=== PATIENT | female | born 1995 | race Caucasian/White ===

== ENCOUNTER 2018-01-16 19:06 | Emergency (ER) | payer MEDICAID, SELFPAY ==
[2018-01-16 19:07] VITALS: BP 157/108; PULSE 90; RESP 17; TEMP 35.9; O2SAT 96; BMI 55.3
[2018-01-16 19:21] LABS: Bedside Glucose 109 mg/dL (70-110)
--- NOTE | 2018-01-16 19:27 | EKG12_ITS ---
Test Reason : BLURRED/DOUBLE VISIO Blood Pressure : / mmHG Vent. Rate : 083 BPM Atrial Rate : 083 BPM P-R Int : 120 ms QRS Dur : 096 ms QT Int : 356 ms P-R-T Axes : 002 012 028 degrees QTc Int : 418 ms Normal sinus rhythm Normal ECG Confirmed by MANNY DA SILVA, AMBERLY ([id number]), editorial director RUBIO MURRAY ([id number] on 01/19/2018 8:48:57 AM Referred By: NELIA Confirmed By:AMBERLY BRYANT MD
--- NOTE | 2018-01-16 19:32 | NURSING ---
NO OLD EKG'S IN MUSE
--- NOTE | 2018-01-16 19:35 | CT_ITS ---
STUDY: CTA NECK WITH CONTRAST REASON FOR EXAM: Female, 22 years old. BLURRED AND DOUBLE VISION,DIZZINESS X 4 HRS RADIATION DOSAGE (If Supplied By Facility): CTDIvol = ( 30.49 ) mGy, DLP = ( 1520.52 ) mGycm TECHNIQUE: CT angiography with multi-detector data acquisition was performed from the aortic arch to the skull base following intravenous administration of 100ML ml of Isovue 370 contrast. MIP images were reconstructed from the axial data set. Post-processing of the angiographic images was performed, with multiplanar reformation and 3D reconstruction. Individualized dose optimization techniques were used for this CT. COMPARISON: None. FINDINGS: AORTIC ARCH: There is a bovine origin of the great vessels arising from the aortic arch with a common origin of the brachiocephalic and left common carotid artery. RIGHT CAROTID ARTERIES: Normal right common carotid artery (CCA). Normal right common carotid bulb. Normal origin of the right internal carotid (ICA) artery without a hemodynamically significant stenosis. Normal visualized cervical portion of the right internal carotid artery. Normal origin of the right external carotid artery (ECA). LEFT CAROTID ARTERIES: Normal left common carotid artery (CCA). Normal left common carotid bulb. Normal origin of the left internal carotid (ICA) artery without a hemodynamically significant stenosis. Normal visualized cervical portion of the left internal carotid artery. Normal origin of the left external carotid artery (ECA). VERTEBRAL ARTERIES: Normal bilateral vertebral arteries. CT/CTA Neck W/WO Contrast IMPRESSION: Normal bilateral cervical carotid and vertebral arteries. The degree of stenosis calculation is in accordance with NASCET criteria. Electronically Signed: Galina Wolf MD at 23:20 EDT Tel , Service support ,
--- NOTE | 2018-01-16 19:35 | CT_ITS ---
STUDY: CTA OF THE BRAIN REASON FOR EXAM: Female, 22 years old. BLURRED AND DOUBLE VISION,DIZZINESS X 4 HRS RADIATION DOSAGE (If Supplied By Facility): CTDIvol = ( 30.49 ) mGy, DLP = ( 1520.52 ) mGycm TECHNIQUE: CT angiography was performed with a multi-detector CT scanner. Data acquisition was obtained from the skull base through the vertex following intravenous administration of ml of . MIP images were reconstructed from the axial data set. Post-processing of the angiographic images was performed, with multiplanar reformation and 3D reconstruction. Individualized dose optimization techniques were used for this CT. COMPARISON: None. FINDINGS: Normal bilateral petrous carotid arteries. Normal right cavernous carotid artery with a normal supraclinoid bifurcation. Normal left cavernous carotid artery with a normal supraclinoid bifurcation. Normal right A1 segments of the anterior cerebral artery. Normal left A1 segments of the anterior cerebral artery. Normal intact anterior communicating artery (ACOM). Normal bilateral A2 segments of the anterior cerebral arteries. Normal right M1 and M2 segments of the middle cerebral arteries, with a normal M1 bifurcation. Normal left M1 and M2 segments of the middle cerebral arteries, with a normal M1 bifurcation. There is non-visualization of the right posterior communicating artery (PCOM). Normal left posterior communicating artery (PCOM). Normal bilateral vertebral arteries. Normal basilar artery with a normal basilar bifurcation. The visualized bilateral superior cerebellar (SCA) arteries are normal. Normal bilateral P1, P2 and visualized P3 segments of the posterior cerebral arteries. There is no demonstrated aneurysm of the [place]. There is no demonstrated abnormality of the visualized brain. CT/CTA Head W/WO Contrast IMPRESSION: Normal [place] without a demonstrated aneurysm or hemodynamically significant stenosis. Electronically Signed: Galina Wolf MD at 23:18 EDT Tel , Service support ,
--- NOTE | 2018-01-16 19:43 | ED.DCSUM_ITS ---
- ER Visit Summary Date of Service: 01/16/18 Chief Complaint: Dizziness, blurry vision, double vision History of Present Illness: The patient is a 22 F presenting with dizziness, blurry vision, double vision. She states it started 2-1/2 hours ago. She states when she closes one eye she can see normally out of each eye. When both eyes are open she has double vision. She complains of lightheadedness and vertigo type symptoms. She has mild headache. She complains of generalized weakness. Denies fever or other complaints. Physical Examination: Vitals are stable. Patient is afebrile. Alert no acute distress. HEENT exam is unremarkable. Neck is supple. No meningismus Lungs are clear and equal bilaterally. Heart is regular rate and rhythm. Abdomen is soft nontender nondistended. Extremities are unremarkable. Skin is warm and dry. No focal neurologic deficit. NIH 0. Remainder of exam is unremarkable. Emergency Department Course and Treatment: EKG is sinus rate of 83 with no acute ischemic changes. CBC, chemistries unremarkable. Urinalysis is contaminated with 10-25 epithelial cells. hCG negative. ESR 29, TSH 2.21. Tox positive for THC. Alcohol negative. Patient states that she frequently uses marijuana and does not feel this is the cause of her symptoms. She is given IV fluids, meclizine with improvement. Her double vision has resolved. CTA head and neck are unremarkable. On reevaluation patient's symptoms have completely resolved. Discussed with Dr. Harrell. He recommends close outpatient follow up for MRI vs admission. The patient is offered admission. She prefers to go home and follow-up as an outpatient. She is advised to return to the ED for any worsening complaints. Disposition: Discharge home Impression: Diplopia, dizziness- resolved This note was generated with [employer] dictation software. It may contain incorrect words, spelling, and punctuation that were not noted in review of the chart prior to signing ED Disposition - Plan for ED Patient: Chief Complaint: Neuro S/Sx Referrals: NOT,DEFINED [NON-STAFF] -
[2018-01-16] MEDS: 0.9% Normal Saline 1,000 ML 1000 ML IV (19:49)
[2018-01-16] MEDS: Meclizine 12.5 MG Tablet 25 MG PO (19:49)
[2018-01-16 19:55] LABS: Red Blood Cells-Urine 0 SEEN /hpf (0-5)
[2018-01-16 19:57] LABS: Absolute Lymphocyte Count 3.61 X10^3/ul (0.83-4.51); Absolute Neutrophil Count 6.2 X10^3/uL (2.0-7.7); Basophil# 0.03 X10^3/uL; Basophil% 0.3 % (0-1); Eosinophil# 0.16 X10^3/uL; Eosinophils% 1.5 % (0-5); Hematocrit 41.3 % (37-47); Hemoglobin 13.9 g/dl (12.0-15.0); Lymphocyte # 3.61 X10^3/ul (4.0); Lymphocyte % 33.9 % (19-41); Mean Corp Hgb Conc 33.7 g/gl (32-36); Mean Corpuscular Hgb 30.5 pg (27.0-32.0); Mean Corpuscular Volume 90.6 fL (81-99); Mean Platelet Vol. 10.6 fl (6.2-12.0); Monocyte# 0.62 X10^3/uL; Monocyte% 5.8 % (0-10); Neutrophil # 6.23 X10^3/uL (2.7-7.7); Neutrophil % 58.4 % (47-70); Platelet Count 269 K/mm3 (150-450); RBC Distribution Width CV 13.3 % (11.6-14.6); RBC Distribution Width SD 43.2 fl (35.1-43.9); Red Blood Count 4.56 M/mm3 (4.2-5.4); White Blood Count 10.7 K/mm3 (4.4-11.0)
[2018-01-16 19:58] LABS: POSITIVE COUNT NO; POSITIVE DIFFERENTIAL NO; POSITIVE MORPHOLOGY NO
[2018-01-16 20:08] LABS: Erythrocyte Sedimentation Rate 29 mm/hr (0-20)
[2018-01-16 20:09] LABS: Color, Urine Yellow (Yellow); Glucose, Dipstick Normal (Normal); Ketone-Dipstick Negative (Negative); Leukocyte Esterase-Dipstick 500 /ul (Negative); Nitrite-Dipstick Negative (Negative); Occult Blood-Urine 10 /ul (Negative); Protein-Dipstick 15 mg/dl (Negative); Specific Gravity, Urine 1.025 (1.002-1.030); Urine Clarity Cloudy (Clear); Urine Urobilinogen 1 mg/dl (Normal)
[2018-01-16 20:14] LABS: Anion Gap 9 (5-15); BUN 8 mg/dL (7-18); BUN/Creat Ratio 10.7 RATIO (10-20); Chloride 108 mmol/L (98-107); Creatinine, Serum 0.75 mg/dL (0.55-1.02); EST Glomerular Filtration Rate 103 mL/min (>60); Est Glom Filt Rate - Afr Amer 124 mL/min (>60); Estimated Creatinine Clearance 122.96 ml/min; Glucose 96 mg/dL (74-106); Potassium 3.5 mmol/L (3.5-5.1); Sodium Level 142 mmol/L (136-145); Thyroid Stim Hormone (TSH) 2.21 uIU/mL (0.358-3.74)
[2018-01-16 20:15] LABS: Urine Bilirubin Dipstick 1 mg/dL (Negative)
[2018-01-16 20:16] LABS: Mucous, Urine 4+ /hpf (<or=2+)
[2018-01-16 20:19] LABS: Bacteria 2+ /hpf (None Seen); White Blood Cells 5-10 SEEN /hpf (0-5)
[2018-01-16 20:24] LABS: Squamous Epithelial Cells - UA 10-25 SEEN /hpf (5-10)
[2018-01-16 20:29] LABS: Fine Granular Cast- Urine 0-5 SEEN /lpf (0-5)
[2018-01-16 20:51] LABS: Amphetamine Urine VISTA NEGATIVE (<1000 ng/mL); Barbiturate Urine VISTA NEGATIVE (< 200 ng/mL); Benzodiazepine Urine VISTA NEGATIVE (< 200 ng/mL); Cocaine Urine VISTA NEGATIVE (< 300 ng/mL); Ecstacy Urine VISTA NEGATIVE (< 500 ng/mL); Methadone Urine VISTA NEGATIVE (< 300 ng/mL); PCP Urine VISTA NEGATIVE (< 25 ng/mL); THC Urine VISTA POSITIVE (< 50 ng/mL); Vista UDS pH Range 5
[2018-01-16 21:43] LABS: Pregnancy, Serum, hCG Quali. NEGATIVE Negative (0-9 Nonpreg)
--- NOTE | 2018-01-16 23:40 | ED.DEP ---
ED Disposition - Plan for ED Patient: Chief Complaint: Neuro S/Sx Instructions: ED Double Vision Prescriptions: Meclizine HCl 25 mg PO TID PRN PRN #20 tablet PRN Reason: Dizziness Referrals: NOT,DEFINED [NON-STAFF] - Bertin Harrell MD [STAFF PHYSICIAN] - Evelyn Hayden DO [STAFF PHYSICIAN] -
[2018-01-16 23:58] VITALS: BP 154/87; PULSE 93; RESP 20; O2SAT 100
== END 2018-01-16 23:59 | disposition home or self-care (01) ==
PROVIDERS: Emergency Provider Emergency Medicine
DX: H53.2 Diplopia (principal); R42 Dizziness and giddiness
CPT/HCPCS: 70496; 70498; 80048; 80307; 80320; 81001; 82962; 84443; 84703; 85025; 85652; 93005; 96360; 96361; 99285; J7030; Q9967; A4216; G0480

== ENCOUNTER 2018-08-16 16:51 | Emergency (ER) | payer MEDICAID, SELFPAY ==
[2018-08-16 16:53] VITALS: BP 167/93; PULSE 87; RESP 18; TEMP 36.6; O2SAT 100; BMI 51.1
--- NOTE | 2018-08-16 17:19 | US_ITS ---
STUDY: VENOUS DOPPLER ULTRASOUND - LEFT LOWER EXTREMITY REASON FOR EXAM: Female, 23 years old. Pain and swelling TECHNIQUE: Ultrasound evaluation of the deep vein system to include ryan-scale imaging and compression was performed. Ryan-scale imaging and Doppler sonographic evaluation, including duplex spectral analysis and qualitative color flow sonography, was performed. COMPARISON: None. FINDINGS: Common Femoral Vein: Normal compression, spontaneity and augmentation. Normal color Doppler. Common Femoral Vein/Greater Saphenous Junction: Normal compression, spontaneity and augmentation. Normal color Doppler. Deep Femoral Vein: Normal compression, spontaneity and augmentation. Normal color Doppler. Femoral Proximal: Normal compression, spontaneity and augmentation. Normal color Doppler. Femoral Middle: Normal compression, spontaneity and augmentation. Normal color Doppler. Femoral Distal: Normal compression, spontaneity and augmentation. Normal color Doppler. Popliteal Vein: Normal compression, spontaneity and augmentation. Normal color Doppler. Posterior Tibial Vein: Normal compression, spontaneity and augmentation. Normal color Doppler. Peroneal Vein: Normal compression, spontaneity and augmentation. Normal color Doppler. US/Venous Duplex Imag/Limited/Uni IMPRESSION: Normal venous Doppler ultrasound of the lower extremity. Electronically Signed: Issac Casiano MD at 17:53 EST , Service support ,
[2018-08-16] MEDS: Naproxen 500 MG Tablet PO (17:51)
--- NOTE | 2018-08-16 18:23 | ED.DCSUM_ITS ---
- ER Visit Summary Date of Service: 08/16/18 Chief Complaint: Left leg pain History of Present Illness: The patient is a 23 F with left leg pain for the past 1 month. She states she woke one morning with pain and tingling. This started shortly after she started taking oral contraceptive pills is concerned for DVT. Apparently patient's sister developed DVT after starting oral contraceptive pills. Patient denies chest pain. She states she will intermittently have shortness of breath. Physical Examination: Blood pressure is 167/93, other vitals normal. Patient sitting upright in bed no acute distress. Head neck examination is normal. Heart is regular rate and rhythm. Lung sounds are clear. Abdomen is soft, obese, nontender. Back examination was reproducible tenderness in the low lumbar midline region as well as in the paraspinals. No overlying skin changes. Lower extremity examination was mild muscular tenderness of the proximal posterior calf and diffusely throughout the thigh. No skin changes noted. She has strong distal pulses. Test Results: Venous ultrasound of the left leg shows no sign of DVT. Emergency Department Course and Treatment: Patient is given naproxen here. She began a prescription for the same. She will be referred to establish a primary care physician for follow-up. Treatment Plan: [] Disposition: Discharge Impression: Myalgias, left leg This note was generated with [employer] dictation software. It may contain incorrect words, spelling, and punctuation that were not noted in review of the chart prior to signing ED Disposition - Plan for ED Patient: Chief Complaint: Lower Extremity Injury Referrals: Care Physician,No Primary [Primary Care Provider] -
--- NOTE | 2018-08-16 18:23 | ED.DEP ---
ED Disposition - Plan for ED Patient: Disposition: Home or Assisted Living Chief Complaint: Lower Extremity Injury Instructions: ED Muscle Aching Prescriptions: Naproxen [Naprosyn] 500 mg PO BID PRN PRN #20 tablet PRN Reason: Pain Referrals: Reggie Almeida MD [STAFF PHYSICIAN] -
[2018-08-16 18:25] VITALS: BP 148/93; PULSE 87; RESP 18; O2SAT 98
== END 2018-08-16 18:34 | disposition home or self-care (01) ==
PROVIDERS: Emergency Provider Emergency Medicine
DX: M79.18 Myalgia, other site (principal); R06.02 Shortness of breath; M54.9 Dorsalgia, unspecified; G89.29 Other chronic pain
CPT/HCPCS: 93971; 99282

== ENCOUNTER 2018-12-28 09:54 | Observation (INO) | payer MEDICAID, SELFPAY ==
[2018-12-28] VITALS (14 sets, daily range): BP systolic 114–168; BP diastolic 76–87; PULSE 63–88; RESP 13–21; TEMP 36.3–36.7; O2SAT 93–100; BMI 54.1
--- NOTE | 2018-12-28 09:58 | EKG12_ITS ---
Test Reason : CP Blood Pressure : / mmHG Vent. Rate : 090 BPM Atrial Rate : 090 BPM P-R Int : 122 ms QRS Dur : 092 ms QT Int : 350 ms P-R-T Axes : 005 014 019 degrees QTc Int : 428 ms Normal sinus rhythm Normal ECG Confirmed by MANNY DA SILVA, AMBERLY ([id number]), web editor SANNA SEGOVIA ([id number]) on 12/29/2018 8:20:50 AM Referred By: JO Confirmed By:AMBERLY BRYANT MD
--- NOTE | 2018-12-28 10:05 | US_ITS ---
STUDY: ABDOMINAL ULTRASOUND - RIGHT UPPER QUADRANT REASON FOR VISIT: Female, 23 years old. Right upper quadrant pain TECHNIQUE: Ultrasound evaluation of the right upper quadrant was performed with real-time and static juan-scale imaging. TECHNICAL QUALITY: Adequate. COMPARISON: None. FINDINGS: Liver: The liver measures 19 cm. There is normal echogenicity of the liver. The bile ducts are within normal limits. There is hepatic color flow. The direction of portal flow is hepatopetal. There is no demonstrated mass lesion. Gallbladder: Normal distended gallbladder. The gallbladder wall measures 4.6 mm. There is a negative sonographic Guzman's sign. There is no pericholecystic fluid. There are multiple echogenic structures within the gallbladder, consistent with multiple gallstones. Common Bile Duct (C.B.D.): The common bile duct measures 4.7 mm. Pancreas: Normal size of the head, body and tail of the pancreas. There is normal echogenicity of the pancreas. There is no demonstrated pancreatic mass or cyst. Right Kidney: Normal size of the right kidney. The right kidney measures 12.6 x 6 x 5.6 cm. Normal renal cortex. The right cortex measures 1.5 cm. There is no demonstrated renal mass or cyst. There is no right hydronephrosis. US/Gallbladder IMPRESSION: Cholelithiasis and possible acute cholecystitis. Electronically Signed: Galina Wolf, at 12:06 EDT Tel , Service support ,
--- NOTE | 2018-12-28 10:09 | ED.DCSUM_ITS ---
History of Present Illness Chief Complaint: Chest Pain Informant: Patient Onset: Today - around 5 hrs Context: Sudden Onset Timing: Waxes and wanes Quality: ache/sharp Location: lower chest vs. upper abd Current Severity: Moderate Maximum Severity: Moderate Worsened by: deep inspiration gives mild sharp pains Relieved by: nothing Associated Symptoms: nausea, a little sob. prod cough x 4 weeks. no fevers. Narrative: Patient feels like she has had a cold that has lingered for a month, that is not worsening or improving but she has had no dyspnea with it until this discomfort started this morning. Associated with some nausea, colicky, radiates into her back and she has some burning discomfort in her right shoulder. No palpitations or lightheadedness. No diarrhea. She has not eaten or drank anything this morning yet. She woke up in the middle of the night/morning with this. Has no known medical problems, although she states she is overweight. The back discomfort comes and goes along with the anterior discomfort. Strong family history of coronary disease in family at young ages, her mom had a heart attack at age 27. She has had no leg pain or swelling lately, recent travel, immobilization, hospitalization, or surgery. No history of DVT or PE. Past Medical History - Allergies and Home Meds Allergies/Adverse Reactions: Allergies No Known Allergies Allergy (Verified 12/28/18 09:54) Primary Care Physician: Care Physician,No Primary [Primary Care Provider] - Past Medical History: None Surgical History: no surgical history Lives: With Family Smoking Status: Current every day smoker Review of Systems General: Denies: Chills, Fever, Sweats Eyes: Denies: Visual changes - bilaterally, Diplopia ENT: Denies: Rhinorrhea, Sore throat Cardiovascular: Reports: Chest pain. Denies: Palpitations Respiratory: Reports: Dyspnea, Cough, Sputum. Denies: Orthopnea, Paroxysmal nocturnal dyspnea Gastrointestinal: Reports: Abdominal pain, Nausea. Denies: Vomiting, Diarrhea Genitourinary: Denies: Dysuria, Hematuria, Frequency Musculoskeletal: Reports: Back pain. Denies: Swelling, Extremity Pain Skin: Denies: Rash, Wounds Neurological: Denies: Headache, Weakness, Numbness Physical Exam Vital Signs/Narrative: Vital Signs Temp Pulse Resp BP Pulse Ox 12/28/18 09:55 98.1 F 83 18 159/77 H 99 Inital Vital Signs reviewed: Yes General: Well nourished, Well developed, Obese, No Acute Distress Head: Normocephalic, Atraumatic Eyes: Perrl, EOMI ENT: Moist mucous membranes, No rhinorrhea Neck: Supple, Nontender Cardiovascular: Regular rate, Regular rhythm, No murmurs Respiratory: No distress, CTA bilaterally, Chest nontender Abdomen: Soft, Nondistended, Normal bowel sounds, Tender - upper abd epigast and RUQ. Negative for: Guarding, Rebound tenderness Back: Nontender, Normal Inspection Extremities: Nontender, No edema Skin: Normal color, No rash Neurological: Alert, Oriented x3, Cranial nerves II-XII grossly intact, Normal Strength, Normal Sensation Psychological: Normal affect, Normal Mood Diagnostic/Tx/Re-eval Impressions Gallbladder Ultrasound 12/28/18 10:05 IMPRESSION: Cholelithiasis and possible acute cholecystitis. Electronically Signed: Galina Wolf, at 12:06 EDT Tel , Service support , 12/28/18 10:05 Gallbladder [US] Stat Laboratory Results 12/28/18 12/28/18 12/28/18 10:05 10:05 12:00 WBC 9.0 RBC 4.43 Hgb 13.7 Hct 41.1 MCV 92.8 MCH 30.9 MCHC 33.3 RDW 12.9 RDW Differential 42.8 Plt Count 211 MPV 10.6 Immature Gran % (Auto) 0.100 Neut % (Auto) 57.8 Lymph % (Auto) 32.5 [place] % (Auto) 6.8 Eos % (Auto) 2.6 Baso % (Auto) 0.2 Absolute Neuts (auto) 5.2 Absolute Lymphs (auto) 2.91 Total Counted Not Reportable Sodium 140 Potassium 3.7 Chloride 109 H Carbon Dioxide 26.0 Anion Gap 5 BUN 10 Creatinine 0.74 Estim Creat Clear Calc 123.57 Est GFR (MDRD) Af Amer 124 Est GFR (MDRD) Non-Af 103 BUN/Creatinine Ratio 13.5 Glucose 104 Calcium 8.4 L Total Bilirubin 0.30 AST 12 L ALT 26 Alkaline Phosphatase 67 Total Protein 7.1 Albumin 3.3 Globulin 3.8 Albumin/Globulin Ratio 0.9 Lipase 123 Urine Color Yellow Urine Clarity Sl. Cloudy Urine pH 6.0 Ur Specific [place] 1.015 Urine Protein Negative Urine Glucose (UA) Normal Urine Ketones Negative Urine Occult Blood Negative Urine Nitrite Negative Urine Bilirubin Negative Urine Urobilinogen Normal Ur Leukocyte Esterase 25 H Urine RBC 0 SEEN Urine WBC 0 SEEN Ur Squamous Epith Cells 0-5 SEEN Urine Bacteria 1+ Urine Mucus 0 SEEN Urine Test 12/28/18 12:00 WBC RBC Hgb Hct MCV MCH MCHC RDW RDW Differential Plt Count MPV Immature Gran % (Auto) Neut % (Auto) Lymph % (Auto) [place] % (Auto) Eos % (Auto) Baso % (Auto) Absolute Neuts (auto) Absolute Lymphs (auto) Total Counted Sodium Potassium Chloride Carbon Dioxide Anion Gap BUN Creatinine Estim Creat Clear Calc Est GFR (MDRD) Af Amer Est GFR (MDRD) Non-Af BUN/Creatinine Ratio Glucose Calcium Total Bilirubin AST ALT Alkaline Phosphatase Total Protein Albumin Globulin Albumin/Globulin Ratio Lipase Urine Color Urine Clarity Urine pH Ur Specific [place] Urine Protein Urine Glucose (UA) Urine Ketones Urine Occult Blood Urine Nitrite Urine Bilirubin Urine Urobilinogen Ur Leukocyte Esterase Urine RBC Urine WBC Ur Squamous Epith Cells Urine Bacteria Urine Mucus Urine Test Negative - Rhythm Strip Rhythm Strip: Sinus Rhythm Rate: 90 Ectopy: None - EKG Initial EKG Interpretation: Sinus Rhythm, No Acute Injury Pattern - normal EKG Prior: Unchanged - Medical Decision Making Labs and liver enzymes with lipase are normal, her urinalysis is unremarkable and her is negative. Out of concern for possible gallstones she was sent for ultrasound, it does show gallstones but in addition shows findings consistent with acute cholecystitis. Clinically, this also became more evident with her stay here, as we had difficulty controlling her pain even with morphine. She is hemodynamically stable. Zosyn given and discussed with surgery Dr. leon, who will see and admit the patient. ED Disposition - Plan for ED Patient: Disposition: Acute Care [facility] Diagnosis: Acute calculous cholecystitis
[2018-12-28 10:17] LABS: Absolute Lymphocyte Count 2.91 X10^3/ul (0.83-4.51); Absolute Neutrophil Count 5.2 X10^3/uL (2.0-7.7); Basophil# 0.02 X10^3/uL; Basophil% 0.2 % (0-1); Eosinophil# 0.23 X10^3/uL; Eosinophils% 2.6 % (0-5); Hematocrit 41.1 % (37-47); Hemoglobin 13.7 g/dl (12.0-15.0); Lymphocyte # 2.91 X10^3/ul (4.0); Lymphocyte % 32.5 % (19-41); Mean Corp Hgb Conc 33.3 g/gl (32-36); Mean Corpuscular Hgb 30.9 pg (27.0-32.0); Mean Corpuscular Volume 92.8 fL (81-99); Mean Platelet Vol. 10.6 fl (6.2-12.0); Monocyte# 0.61 X10^3/uL; Monocyte% 6.8 % (0-10); Neutrophil # 5.18 X10^3/uL (2.7-7.7); Neutrophil % 57.8 % (47-70); POSITIVE COUNT NO; POSITIVE DIFFERENTIAL NO; POSITIVE MORPHOLOGY NO; Platelet Count 211 K/mm3 (150-450); RBC Distribution Width CV 12.9 % (11.6-14.6); RBC Distribution Width SD 42.8 fl (35.1-43.9); Red Blood Count 4.43 M/mm3 (4.2-5.4)
[2018-12-28] MEDS: Mag Hydrox/Al Hydrox/Simeth 30 ML UDC PO (10:17)
[2018-12-28] MEDS: Ondansetron ODT 4 MG Tablet 8 MG PO (10:17)
[2018-12-28 10:33] LABS: ALB/GLOB Ratio 0.9 RATIO (0.9-2.4); AST(SGOT) 12 U/L (15-37); Alanine Aminotransfer ALT/SGPT 26 U/L (13-56); Albumin, Serum 3.3 g/dL (3.2-5.0); Alkaline Phosphatase 67 U/L (45-117); Anion Gap 5 (5-15); BUN 10 mg/dL (7-18); BUN/Creat Ratio 13.5 RATIO (10-20); Calcium,Total 8.4 mg/dL (8.5-10.1); Chloride 109 mmol/L (98-107); Creatinine, Serum 0.74 mg/dL (0.55-1.02); EST Glomerular Filtration Rate 103 mL/min (>60); Est Glom Filt Rate - Afr Amer 124 mL/min (>60); Estimated Creatinine Clearance 123.57 ml/min; Globulin 3.8 g/dL (2.2-4.2); Glucose 104 mg/dL (74-106); Lipase 123 U/L (73-393); Potassium 3.7 mmol/L (3.5-5.1); Protein, Total 7.1 g/dL (6.4-8.2); Sodium Level 140 mmol/L (136-145)
[2018-12-28] MEDS: Ketorolac 30 MG/ML Syringe IV (11:47)
[2018-12-28] MEDS: Morphine 4 MG/ML Syringe IV ×3 (11:47→18:04)
[2018-12-28 12:09] LABS: Mucous, Urine 0 SEEN /hpf (<or=2+); Red Blood Cells-Urine 0 SEEN /hpf (0-5); White Blood Cells 0 SEEN /hpf (0-5)
[2018-12-28 12:21] LABS: Color, Urine Yellow (Yellow); Glucose, Dipstick Normal (Normal); Ketone-Dipstick Negative (Negative); Leukocyte Esterase-Dipstick 25 /ul (Negative); Nitrite-Dipstick Negative (Negative); Occult Blood-Urine Negative /ul (Negative); Protein-Dipstick Negative (Negative); Specific Gravity, Urine 1.015 (1.002-1.030); Urine Bilirubin Dipstick Negative (Negative); Urine Clarity Sl. Cloudy (Clear); Urine Urobilinogen Normal (Normal)
[2018-12-28 12:49] LABS: Bacteria 1+ /hpf (None Seen); Squamous Epithelial Cells - UA 0-5 SEEN /hpf (5-10)
[2018-12-28 13:12] LABS: Internal QC Validated? YES +Cl - CLEAR BKGD; Pregnancy, Urine Negative Negative
--- NOTE | 2018-12-28 14:02 | PCM.HP.STD ---
History of Present Illness Date of Admission: 12/28/18 The patient is a 23 year old F presents to ER due to epigastric to right upper quadrant pain trying this morning at 4 AM. Patient states she has had these episodes on and off for the past couple months. Last Thursday she also had an attack however it did improve but this morning at 4 AM she had 10 out of 10 pain along with nausea and vomiting and diarrhea. Patient currently states her pain is at 3/10. She denies reflux. White blood counts and liver functions are within normal range, ultrasound did show a thickened gallbladder wall at 4.6 mm and gallstones, no pericholecystic fluid, common bile duct was 4.7 mm. 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 Lives: With Family Smoking Status: Current every day smoker - *Family History Maternal History Items: No pertinent history Review of Systems Constitutional: Reports: Anorexia Cardiovascular: Denies: Chest Pain Respiratory: Denies: Shortness of Breath VTE Information - Inpt Only VTE Present on Admission: Yes VTE Mechan Device Prophylaxis: SCD's Patient Problems: Active and Suspected Problems Acute calculous cholecystitis (Acute) - Physical Exam General: Alert, Oriented x3, Cooperative, No apparent distress Lungs: Normal air movement Cardiovascular: Regular rate Abdomen: Soft, Non-Distended, Obese, Tender - Right upper quadrant, no peritoneal signs Vital Signs Temp Pulse Resp BP Pulse Ox 98.1 F 80 13 147/79 H 98 12/28/18 09:55 12/28/18 13:06 12/28/18 13:06 12/28/18 13:06 12/28/18 13:06 Oxygen Delivery Method Room Air Weight: 366 lb 10.06 oz Body Mass Index (BMI) 54.1 Finger Stick Blood Glucose 109 Laboratory Tests Past 24 Hrs 12/28/18 12/28/18 12/28/18 10:05 10:05 12:00 WBC 9.0 RBC 4.43 Hgb 13.7 Hct 41.1 MCV 92.8 MCH 30.9 MCHC 33.3 RDW 12.9 RDW Differential 42.8 Plt Count 211 MPV 10.6 Immature Gran % (Auto) 0.100 Neut % (Auto) 57.8 Lymph % (Auto) 32.5 [place] % (Auto) 6.8 Eos % (Auto) 2.6 Baso % (Auto) 0.2 Absolute Neuts (auto) 5.2 Absolute Lymphs (auto) 2.91 Total Counted Not Reportable Sodium 140 Potassium 3.7 Chloride 109 H Carbon Dioxide 26.0 Anion Gap 5 BUN 10 Creatinine 0.74 Estim Creat Clear Calc 123.57 Est GFR (MDRD) Af Amer 124 Est GFR (MDRD) Non-Af 103 BUN/Creatinine Ratio 13.5 Glucose 104 Calcium 8.4 L Total Bilirubin 0.30 AST 12 L ALT 26 Alkaline Phosphatase 67 Total Protein 7.1 Albumin 3.3 Globulin 3.8 Albumin/Globulin Ratio 0.9 Lipase 123 Urine Color Yellow Urine Clarity Sl. Cloudy Urine pH 6.0 Ur Specific [place] 1.015 Urine Protein Negative Urine Glucose (UA) Normal Urine Ketones Negative Urine Occult Blood Negative Urine Nitrite Negative Urine Bilirubin Negative Urine Urobilinogen Normal Ur Leukocyte Esterase 25 H Urine RBC 0 SEEN Urine WBC 0 SEEN Ur Squamous Epith Cells 0-5 SEEN Urine Bacteria 1+ Urine Mucus 0 SEEN Urine Test 12/28/18 12:00 WBC RBC Hgb Hct MCV MCH MCHC RDW RDW Differential Plt Count MPV Immature Gran % (Auto) Neut % (Auto) Lymph % (Auto) [place] % (Auto) Eos % (Auto) Baso % (Auto) Absolute Neuts (auto) Absolute Lymphs (auto) Total Counted Sodium Potassium Chloride Carbon Dioxide Anion Gap BUN Creatinine Estim Creat Clear Calc Est GFR (MDRD) Af Amer Est GFR (MDRD) Non-Af BUN/Creatinine Ratio Glucose Calcium Total Bilirubin AST ALT Alkaline Phosphatase Total Protein Albumin Globulin Albumin/Globulin Ratio Lipase Urine Color Urine Clarity Urine pH Ur Specific [place] Urine Protein Urine Glucose (UA) Urine Ketones Urine Occult Blood Urine Nitrite Urine Bilirubin Urine Urobilinogen Ur Leukocyte Esterase Urine RBC Urine WBC Ur Squamous Epith Cells Urine Bacteria Urine Mucus Urine Test Negative Assessment/Plan All Active Problems Acute calculous cholecystitis (Acute) 23-year-old female with acute cholecystitis 1. Discussed procedure laparoscopic cholecystectomy, with cholangiograms, possible open along with the risk but not limited to bleeding, infection, bile leak or retained stone requiring ERCP, injury to another organ (bile duct, small bowel etc.) which may require transfer to tertiary care facility, hernia at incision sites, and anesthesia. Patient no further questions at this time all questions been answered. Lizzette Leonardo M.D. Pager: [phone] [facility] [address] [place] [address], [address] [place] [id number] Office: [phone]
--- NOTE | 2018-12-28 14:06 | HP.PCM_ITS ---
History of Present Illness Date of Admission: 12/28/18 The patient is a 23 year old F presents to ER due to epigastric to right upper quadrant pain trying this morning at 4 AM. Patient states she has had these episodes on and off for the past couple months. Last Thursday she also had an attack however it did improve but this morning at 4 AM she had 10 out of 10 pain along with nausea and vomiting and diarrhea. Patient currently states her pain is at 3/10. She denies reflux. White blood counts and liver functions are within normal range, ultrasound did show a thickened gallbladder wall at 4.6 mm and gallstones, no pericholecystic fluid, common bile duct was 4.7 mm. Past Medical History Allergies No Known Allergies Allergy (Verified 12/28/18 09:54) Home Medications: Ambulatory Orders Medication Instructions Recorded NK 12/28/18 Surgical History: tonsillectomy, - - Cyst removed from right fourth toe, wisdom teeth Psychiatric History: No pertinent psych hx RECE[employer] History: No pertinent [employer] history Lives: With Family Smoking Status: Current every day smoker - *Family History Maternal History Items: No pertinent history Review of Systems Constitutional: Reports: Anorexia Cardiovascular: Denies: Chest Pain Respiratory: Denies: Shortness of Breath VTE Information - Inpt Only VTE Present on Admission: Yes VTE Mechan Device Prophylaxis: SCD's Patient Problems: Active and Suspected Problems Acute calculous cholecystitis (Acute) - Physical Exam General: Alert, Oriented x3, Cooperative, No apparent distress Lungs: Normal air movement Cardiovascular: Regular rate Abdomen: Soft, Non-Distended, Obese, Tender - Right upper quadrant, no peritoneal signs Vital Signs Temp Pulse Resp BP Pulse Ox 98.1 F 80 13 147/79 H 98 12/28/18 09:55 12/28/18 13:06 12/28/18 13:06 12/28/18 13:06 12/28/18 13:06 Oxygen Delivery Method Room Air Weight: 366 lb 10.06 oz Body Mass Index (BMI) 54.1 Finger Stick Blood Glucose 109 Laboratory Tests Past 24 Hrs 12/28/18 12/28/18 12/28/18 10:05 10:05 12:00 WBC 9.0 RBC 4.43 Hgb 13.7 Hct 41.1 MCV 92.8 MCH 30.9 MCHC 33.3 RDW 12.9 RDW Differential 42.8 Plt Count 211 MPV 10.6 Immature Gran % (Auto) 0.100 Neut % (Auto) 57.8 Lymph % (Auto) 32.5 [place] % (Auto) 6.8 Eos % (Auto) 2.6 Baso % (Auto) 0.2 Absolute Neuts (auto) 5.2 Absolute Lymphs (auto) 2.91 Total Counted Not Reportable Sodium 140 Potassium 3.7 Chloride 109 H Carbon Dioxide 26.0 Anion Gap 5 BUN 10 Creatinine 0.74 Estim Creat Clear Calc 123.57 Est GFR (MDRD) Af Amer 124 Est GFR (MDRD) Non-Af 103 BUN/Creatinine Ratio 13.5 Glucose 104 Calcium 8.4 L Total Bilirubin 0.30 AST 12 L ALT 26 Alkaline Phosphatase 67 Total Protein 7.1 Albumin 3.3 Globulin 3.8 Albumin/Globulin Ratio 0.9 Lipase 123 Urine Color Yellow Urine Clarity Sl. Cloudy Urine pH 6.0 Ur Specific [place] 1.015 Urine Protein Negative Urine Glucose (UA) Normal Urine Ketones Negative Urine Occult Blood Negative Urine Nitrite Negative Urine Bilirubin Negative Urine Urobilinogen Normal Ur Leukocyte Esterase 25 H Urine RBC 0 SEEN Urine WBC 0 SEEN Ur Squamous Epith Cells 0-5 SEEN Urine Bacteria 1+ Urine Mucus 0 SEEN Urine Test 12/28/18 12:00 WBC RBC Hgb Hct MCV MCH MCHC RDW RDW Differential Plt Count MPV Immature Gran % (Auto) Neut % (Auto) Lymph % (Auto) [place] % (Auto) Eos % (Auto) Baso % (Auto) Absolute Neuts (auto) Absolute Lymphs (auto) Total Counted Sodium Potassium Chloride Carbon Dioxide Anion Gap BUN Creatinine Estim Creat Clear Calc Est GFR (MDRD) Af Amer Est GFR (MDRD) Non-Af BUN/Creatinine Ratio Glucose Calcium Total Bilirubin AST ALT Alkaline Phosphatase Total Protein Albumin Globulin Albumin/Globulin Ratio Lipase Urine Color Urine Clarity Urine pH Ur Specific [place] Urine Protein Urine Glucose (UA) Urine Ketones Urine Occult Blood Urine Nitrite Urine Bilirubin Urine Urobilinogen Ur Leukocyte Esterase Urine RBC Urine WBC Ur Squamous Epith Cells Urine Bacteria Urine Mucus Urine Test Negative Assessment/Plan All Active Problems Acute calculous cholecystitis (Acute) 23-year-old female with acute cholecystitis 1. Discussed procedure laparoscopic cholecystectomy, with cholangiograms, possible open along with the risk but not limited to bleeding, infection, bile leak or retained stone requiring ERCP, injury to another organ (bile duct, small bowel etc.) which may require transfer to tertiary care facility, hernia at incision sites, and anesthesia. Patient no further questions at this time all questions been answered. Lizzette Leonardo M.D. Pager: [phone] [facility] [address] [place] [address], [address] [place] [id number] Office: [phone]
--- NOTE | 2018-12-28 14:52 | RAD_ITS ---
STUDY: CHOLANGIOGRAM REASON FOR EXAM: Female, 23 years old. Flank pain Cholecystectomy. FLUOROSCOPY TIME (if supplied): (0:06) minutes/seconds TECHNIQUE: Intraoperative fluoroscopy. 3 intraoperative views. COMPARISON: None. FINDINGS: There is opacification of cystic duct and common bile duct. No filling defects are seen the common bile duct to suggest retained stone. Contrast flows easily into the duodenum. RAD/Cholangiogram/ O R,Initial IMPRESSION: There is no evidence of retained stones in the common bile duct. Electronically Signed: Galina Wolf, at 16:20 EDT Tel , Service support ,
[2018-12-28] MEDS: Bupivacaine Mpf 0.5% 30 ML VIAL (16:18)
--- NOTE | 2018-12-28 16:20 | OP.PCM_ITS ---
Report of Operation Date of Procedure: 12/28/18 Pre-Operative Diagnosis: Acute cholecystitis Post-Operative Diagnosis: Same Surgery/Procedure Performed:: Laparoscopic cholecystectomy with cholangiograms hand kiss setter: Madhu Mims Type of Anesthesia:: General/Supplemental Anesthesiologist: Osile Heck Special Medications: Zosyn 3.375 g given previous in the ER for acute cholecystitis Estimated Blood Loss (mL): <10 cc Fluids Replaced: 1200 cc Description of Procedure: Indications this is a 23 year-old female who developed abdominal pain/nausea/vomiting and on workup was found to have cholelithiasis, acute cholecystitis with a normal common bile duct and LFTs. Laparoscopic cholecyste ctomy was elected. Description procedure: The patient was placed on operating table in supine position. General Anesthesia was induced. A timeout was completed verifying correct patient, procedure, site, position, social, and special equipment prior to beginning procedure. An orogastric tube was placed. The abdomen was prepped and draped in usual sterile fashion. Incision was made in the right lateral/mid quadrant. 5 mm trocar and camera was placed for Visiport into the abdomen. Entrance abdomen was confirmed visually. The abdomen was insufflated with carbon dioxide to a pressure of 12-15 mmHg. Patient tolerated insufflation well. The laparoscope was then inserted and abdomen inspected. No injuries from initial trocar placement were noted. Additional trochars were then inserted in the following locations 5 mm trocar in the epigastrium, another 5 mm trochar along the right costal margin, and jimy trocar was placed supraumbilically after incision made with a 15 blade scalpel. The abdomen was inspected no abnormalities were found. The table is placed in reverse Trendelenburg position with the right side up. The dome of the gallbladder was grasped with atraumatic grasper passed through the lateral port and retracted over the dome of the liver. Infundibulum was then grasped with atraumatic grasper through the midclavicular port and retracted to the right lower quadrant. This maneuver exposed Calot's triangle. The peritoneum overlying the gallbladder infundibulum was then incised and cystic duct and artery identified and circumferentially dissected. The cystic artery was overlying the cystic duct and it was doubly clipped and divided close to the gallbladder. Gardner catheter was used for cholangiograms. Cholangiograms showed good flow into the duodenum as well as no filling defects in the common bile duct, common hepatic duct, left and right bile ducts. The cystic duct was then doubly clipped and divided close to the gallbladder. The gallbladder then dissected from its peritoneal attachments by electrocautery. Hemostasis was checked and the gallbladder and contained stone was removed using the endoscopic retrieval bag through the umbilical port. Due to the large stone the supraumbilical trocar site had to be enlarged slightly. The gallbladder is passed off table as specimen. The gallbladder fossa was copiously irrigated with saline and hemostasis obtained. There is no evidence of bleeding from the gallbladder fossa or cystic artery leakage of bile from the cystic duct stump. Secondary trochars removed under direct vision. No bleeding was noted the trocar sites. The laparoscope was withdrawn and umbilical trocar removed. The abdomen was allowed to collapse. The fascia of the 12 mm trocar was closed with 2 [id number] 0 Vicryl suture. The skin was closed with sutures of 4-0 Monocryl and Steri-Strips. The orogastric tube was removed and the patient was extubated. The patient tolerated procedure well and was taken to the postanesthesia care unit in stable condition. - Complications none - Admit VTE Documentation VTE Present on Admission: Yes VTE Mechan Device Prophylaxis: SCD's
--- NOTE | 2018-12-28 16:30 | GALL_PTH ---
PATIENT: DONNA MCMULLEN LOC: MS3 U#:[id number] AGE/SX: 23 ROOM: MS321 RE12/28/[address]: Dr. Lizzette Leonardo MD : 1995 BED: 1 DIS: 12/29/2018 SPEC #: [id number] RECD: 12/29/18 07:26 STATUS: TANISHA REQ #: [id number] MIGUEL ANGEL: 12/28/18 16:[address]: Lizzette Leonardo DEPT: SURGICAL PATHOLOGY RECD BY: Sean Alcaraz ENTERED: 12/29/18 13:07 SP TYPE: FREDO LOONEY DR: No Primary Care Phys Tissues: Gallbladder, NOS Procedures: Surgery Specimen Level III HEADER OPERATION: Laparoscopic cholecystectomy with IOC PRE-OP DIAGNOSIS: Acute calculous cholecystitis TISSUE SUBMITTED: Gallbladder MICROSCOPIC DIAGNOSIS Gallbladder, cholecystectomy: Chronic cholecystitis and cholelithiasis. AM:liam 12/30/18 MICROSCOPIC DESCRIPTION Slides are reviewed. GROSS DESCRIPTION Received is one container labeled with the patient's name and designated gallbladder. The specimen consists of a gallbladder measuring 8 x 3 x 3 cm. The external surface is smooth and glistening. Focally, it is granular, hemorrhagic and contains cautery artifact. The lumen of the gallbladder contains yellow-green mucoid bile and three adams-green stones measuring 0.7 to 2.5 cm in greatest dimension. The mucosa is bile-stained and without any mass lesions. The gallbladder wall averages 0.4 cm in thickness and is free of mass lesions. Plastic Molding Operator sections of the gallbladder and the cystic duct are submitted in one cassette. / AM:liam 12/29/18 TC:3 CPT: 43628
--- NOTE | 2018-12-28 17:39 | PCM.DC.GB ---
Discharge Diet: Light diet - advance as tolerated Discharge Activity: May not drive while taking narcotic pain medications. May shower in (days): 1 Lifting Restrictions: No lifting greater than 20 lbs x 4 weeks, no strenuous exercise times 8 wks Call your doctor if your incision/area has: Continuous Slow Oozing, Sudden Increased Bleeding, Increased Pain/ Swelling, Increased Redness, Foul Smelling Discharge, Swelling at the incision site Call your doctor if you observe: Fever of 101 or Higher Remove Dressing in (days):: 2 Additional Instructions: Okay to take ibuprofen 400-600 mg PO q6hr PRN along with the Percocet. Avoid Tylenol since there is already Tylenol in the Percocet. Take all pain meds with food. Percocet can cause constipation recommend taking daily stool softener (i.e. Colace/docusate) while taking the pain meds. Recommend starting some MiraLAX if no bowel movement in 2 days if you normally go daily. If still no bowel movement the following day recommend taking magnesium citrate half the bottle and waiting 4-6 hours if still no results take the other half the bottle. Allergies/Adverse Reactions: Allergies No Known Allergies Allergy (Verified 12/28/18 09:54) Medications to take at Discharge Oxycodone HCl/Acetaminophen [Percocet 5/325] 1 - 2 tablet PO Q6H PRN PRN 4 Days #25 tablet 12/28/18 The following prescriptions were given: Oxycodone HCl/Acetaminophen [Percocet 5/325] 1 - 2 tablet PO Q6H PRN PRN 4 Days #25 tablet PRN Reason: Pain Primary Care Physician: Care Physician,No Primary [Primary Care Provider] - Test Results: Test results from this visit will be discussed in further detail at your follow-up appointment, if applicable. Please Follow Up With: Lizzette Leonardo MD - Call [phone] with any concerns after 5 PM and on the weekends When: Call the office [phone] for an appointment in 2 weeks Proposed Discharge Date: 12/29/18
[2018-12-28] MEDS: Ondansetron 4 MG/2 ML Vial IV (18:04)
[2018-12-28] MEDS: 0.9% NaCl IVPB Med Flush (250 mL) 15 ML IV (18:49)
[2018-12-28] MEDS: 0.9% NaCl Peripheral Flush Adult/Peds IV (21:19)
[2018-12-28] MEDS: Morphine 2 MG/ML Syringe IV (21:19)
[2018-12-29] MEDS: Morphine 2 MG/ML Syringe IV (01:48)
[2018-12-29] MEDS: Dextrose 5%-Lactated Ringers 1,000 ML 125 ML IV (02:20)
[2018-12-29] MEDS: Ketorolac 15 MG/ML Vial IV (05:25)
[2018-12-29] MEDS: 0.9% NaCl Peripheral Flush Adult/Peds IV ×2 (05:26→09:36)
[2018-12-29 05:30] VITALS: BP 155/99; PULSE 70; RESP 18; TEMP 37.1; O2SAT 98
--- NOTE | 2018-12-29 07:39 | PCM.PN.SRG ---
Patient Problems: Active and Suspected Problems Acute calculous cholecystitis (Acute) Subjective: Patient tolerating clears ready for regular diet this morning, pain controlled, ambulating halls - Physical Exam General: Alert, Oriented x3, Cooperative, No apparent distress HEENT: Atraumatic Cardiovascular: Regular rate Abdomen: Soft, Non-Distended, Obese, Tender - Near incisions, appropriate, incision clean dry and intact/dressed Extremities: No clubbing, No cyanosis, No edema Vital Signs Temp Pulse Resp BP Pulse Ox 98.7 F 70 18 155/99 H 98 12/29/18 05:30 12/29/18 05:30 12/29/18 05:30 12/29/18 05:30 12/29/18 05:30 Oxygen Flow Rate (L/min) 2 Oxygen Delivery Method Room Air Weight: 366 lb 10.06 oz Body Mass Index (BMI) 54.1 Finger Stick Blood Glucose 109 Intake and Output for Last 24 Hours 12/27/18 12/28/18 12/29/18 23:59 23:59 23:59 Intake Total 1100 / 1100 2260 / 2260 Balance 1100 / 1100 2260 / 2260 Laboratory Tests Past 24 Hrs 12/28/18 12/28/18 12/28/18 10:05 10:05 12:00 WBC 9.0 RBC 4.43 Hgb 13.7 Hct 41.1 MCV 92.8 MCH 30.9 MCHC 33.3 RDW 12.9 RDW Differential 42.8 Plt Count 211 MPV 10.6 Immature Gran % (Auto) 0.100 Neut % (Auto) 57.8 Lymph % (Auto) 32.5 [place] % (Auto) 6.8 Eos % (Auto) 2.6 Baso % (Auto) 0.2 Absolute Neuts (auto) 5.2 Absolute Lymphs (auto) 2.91 Total Counted Not Reportable Sodium 140 Potassium 3.7 Chloride 109 H Carbon Dioxide 26.0 Anion Gap 5 BUN 10 Creatinine 0.74 Estim Creat Clear Calc 123.57 Est GFR (MDRD) Af Amer 124 Est GFR (MDRD) Non-Af 103 BUN/Creatinine Ratio 13.5 Glucose 104 Calcium 8.4 L Total Bilirubin 0.30 AST 12 L ALT 26 Alkaline Phosphatase 67 Total Protein 7.1 Albumin 3.3 Globulin 3.8 Albumin/Globulin Ratio 0.9 Lipase 123 Urine Color Yellow Urine Clarity Sl. Cloudy Urine pH 6.0 Ur Specific [place] 1.015 Urine Protein Negative Urine Glucose (UA) Normal Urine Ketones Negative Urine Occult Blood Negative Urine Nitrite Negative Urine Bilirubin Negative Urine Urobilinogen Normal Ur Leukocyte Esterase 25 H Urine RBC 0 SEEN Urine WBC 0 SEEN Ur Squamous Epith Cells 0-5 SEEN Urine Bacteria 1+ Urine Mucus 0 SEEN Urine Test 12/28/18 12:00 WBC RBC Hgb Hct MCV MCH MCHC RDW RDW Differential Plt Count MPV Immature Gran % (Auto) Neut % (Auto) Lymph % (Auto) [place] % (Auto) Eos % (Auto) Baso % (Auto) Absolute Neuts (auto) Absolute Lymphs (auto) Total Counted Sodium Potassium Chloride Carbon Dioxide Anion Gap BUN Creatinine Estim Creat Clear Calc Est GFR (MDRD) Af Amer Est GFR (MDRD) Non-Af BUN/Creatinine Ratio Glucose Calcium Total Bilirubin AST ALT Alkaline Phosphatase Total Protein Albumin Globulin Albumin/Globulin Ratio Lipase Urine Color Urine Clarity Urine pH Ur Specific [place] Urine Protein Urine Glucose (UA) Urine Ketones Urine Occult Blood Urine Nitrite Urine Bilirubin Urine Urobilinogen Ur Leukocyte Esterase Urine RBC Urine WBC Ur Squamous Epith Cells Urine Bacteria Urine Mucus Urine Test Negative Medical Necessity - Tobacco Use Smoking Status: Current every day smoker Assessment/Plan All Active Problems Acute calculous cholecystitis (Acute) 23-year-old female with acute cholecystitis, postop day 1 laparoscopic cholecystectomy with cholangiograms 1. Advance to regular diet. Patient's pain is controlled with p.o. medications, continue light halls. Patient continues well we will discharge today. Lizzette Leonardo M.D. Pager: [phone] [facility] [address] [place] [address], [address] [place] [address] Office: [phone]
[2018-12-29 08:03] VITALS: O2SAT 95
[2018-12-29 08:07] VITALS: BP 133/72; PULSE 71; RESP 16; TEMP 36.6; O2SAT 100
[2018-12-29] MEDS: oxyCODONE 5 MG Tablet PO (08:50)
[2018-12-29 11:25] VITALS: BP 121/67; PULSE 69; RESP 16; TEMP 36.9; O2SAT 100
== END 2018-12-29 11:20 | disposition home or self-care (01) ==
LOC: ED 13:41 → SDC 13:44 → MS3 13:44 → SDC 13:45 → MS3 13:52 → SDC 16:33
PROVIDERS: Admitting Provider Surgery; Emergency Provider Emergency Medicine; Visit Provider Surgery
PROC: (CPT 47610; principal; 2018-12-28 16:10)
DX: R07.9 Chest pain, unspecified (principal); K80.12 Calculus of gallbladder with acute and chronic cholecystitis without obstruction; Z82.49 Family history of ischemic heart disease and other diseases of the circulatory system; F17.200 Nicotine dependence, unspecified, uncomplicated; E66.3 Overweight; Z68.43 Body mass index [BMI] 50.0-59.9, adult; Z71.3 Dietary counseling and surveillance
CPT/HCPCS: 00790; 47563; 74300; 76000; 76705; 80053; 81001; 81025; 83690; 85025; 88304; 93005; 96361; 96365; 96366; 96375; 96376; 99218; 99281; J7040; J7050; A4216; G0378; J2405

== ENCOUNTER 2019-03-09 16:42 | Emergency (ER) | payer MEDICAID, SELFPAY ==
[2018-12-28 17:37] VITALS: BMI 54.1
[2019-03-09 16:43] VITALS: BP 163/94; PULSE 86; RESP 16; TEMP 36.8; O2SAT 98; BMI 54.3
--- NOTE | 2019-03-09 17:40 | ED.DCSUM_ITS ---
- ER Visit Summary Date of Service: 03/09/19 Chief Complaint: [Laceration left thumb] History of Present Illness: The patient is a 23 F [presents the emergency department after lacerating her left thumb. Patient states she was using a steak knife to cut a plastic tie off of the toy when she accidentally lacerated her thumb. Patient is right-hand dominant. She is unsure of her last tetanus. She has no medical history.] Physical Examination: [Left thumb-over the lateral aspect of the distal phalanx there is a 1 cm laceration. Patient has normal range of motion at the IP joint. She has somewhat decreased sensation to the lateral aspect of the distal phalanx. Normal cap refill. No significant active bleeding noted.] Test Results: [None indicated] Emergency Department Course and Treatment: [Laceration repair-wound sterilely draped and prepped. Wound anesthetized locally with 2 cc of 1% lidocaine. Wound cleansed with Shur-Clens and irrigated with copious saline. Using 5-0 nylon a total of 2 single interrupted sutures placed with good wound edge approximation. Patient tired procedure well.] Treatment Plan: [Patient have sutures removed in 10 days. Patient advised to return if increasing pain, redness, swelling, purulent drainage, or conditions worsen anyway.] Disposition: [Discharged home in stable condition] Impression: [Left thumb laceration 1 cm-simple repair] This note was generated with [email or web address] dictation software. It may contain incorrect words, spelling, and punctuation that were not noted in review of the chart rhonda or to signing ED Disposition - Plan for ED Patient: Referrals: Care Physician,No Primary [Primary Care Provider] -
--- NOTE | 2019-03-09 17:42 | ED.DEP ---
ED Disposition - Plan for ED Patient: Instructions: ED Laceration Hand Referrals: Care Physician,No Primary [Primary Care Provider] - Brenda Rosales MD [STAFF PHYSICIAN] - 10 Day for suture removal
[2019-03-09] MEDS: Diphth,Pertuss(Acell),Tet Vac 0.5 ML Vial IM (17:47)
== END 2019-03-09 17:52 | disposition home or self-care (01) ==
LOC: ED 17:19
PROVIDERS: Emergency Provider Emergency Medicine
DX: S61.012A Laceration without foreign body of left thumb without damage to nail, initial encounter (principal); W26.0XXA Contact with knife, initial encounter; Y93.9 Activity, unspecified; Y92.9 Unspecified place or not applicable; Y99.9 Unspecified external cause status; Z72.0 Tobacco use
CPT/HCPCS: 12001; 90715; 99282

== ENCOUNTER 2021-10-29 20:02 | Emergency (ER) | payer MEDICAID, SELFPAY ==
[2021-10-29 20:02] VITALS: BP 157/107; PULSE 114; RESP 16; TEMP 36.7; O2SAT 99; BMI 47.1
--- NOTE | 2021-10-29 20:29 | EX.ED.UPPERE ---
HPI History of Present Illness HPI Narrative: Patient presents with a laceration to her left wrist that occurred today. Patient states she cut herself intentionally. Patient states she was under a lot of stress and anxiety and cut her left wrist. Patient denies any suicidal or homicidal ideations. Patient states she has done this in the past. Patient is unsure of her last tetanus. Patient denies any paresthesias or weakness. Patient denies any other injuries. Chief Complaint: Laceration Informant: patient Occured/Mechanism Comment: Cut herself Onset/Context/Timing Onset: Today Context: Sudden Onset Timing: Continuous Location: Left wrist Associated Symptoms Associated Symptoms: Negative for Parasthesia, Weakness and Loss of Funtion PFSH PFS Home Medications NK 03/09/19 [History Last Taken Unknown] Allergy/AdvReac Type Severity Reaction Status Date / Time No Known Allergies Allergy Verified 10/29/21 20:07 Surgical History (Updated 10/29/21 @ 20:[address] Reggie Hassan DO) Hx of cholecystectomy Surgical History no surgical history Social History Smoking Status: Current every day smoker tobacco type: cigarettes ROS ROS ED Constitutional Constitutional ED: Denies chills or fever(s) Eyes Eyes: Denies blurry vision or change in vision ENT ENT ED: Denies rhinorrhea or sore throat Cardiovascular Cardiovascular: Denies chest pain or palpitations Respiratory/Chest Respiratory/Chest: Denies cough or dyspnea Gastrointestinal Gastrointestinal: Denies nausea or vomiting Genitourinary Genitourinary ED: Denies dysuria or hematuria Musculoskeletal Musculoskeletal: Denies back pain or neck pain Integumentary Denies abscess or rash Neurologic Neurologic: Denies headache(s) or weakness Allergic/Immunologic Allergic/Immunologic ED: Denies mouth swelling or urticaria EXAM Physical Exam Const Vital Signs: 10/29/21 20:02 Temperature 98.1 F Temperature Source Temporal Pulse Rate 114 H Respiratory Rate 16 Blood Pressure 157/107 H Blood Pressure Mean 123 Pulse Ox 99 Oxygen Delivery Method Room Air Positive well nourished, well developed and obese General Appearance ED: well developed Nutritional Appearance: obese HEENT Reports moist mucous membranes Neck full ROM Neuro oriented x3, CN's II-XII intact bilaterally, moves all extremities, no focal motor deficits and no sensory deficits noted Sensorium / Orientation: alert Psych mental status grossly normal Skin Skin Narrative: There is a 2 cm full-thickness linear laceration over the volar aspect of the left wrist. There is mild gapping of the wound margins. There are no foreign bodies noted. There are no tendon lacerations noted. There is no active bleeding noted. MDM MDM MDM Narrative Medical decision making narrative: The wound was cleaned and irrigated with copious amounts of normal saline. The wound was anesthetized with 1% plain lidocaine locally. The wound was closed with 3 simple interrupted #4-0 nylon sutures under sterile technique. Patient tolerated the procedure well. Bacitracin dressing was applied. Patient was given a tetanus booster. Patient was given a dose of hydroxyzine here for her anxiety. Social work was in to evaluate the patient. She was able to arrange for follow-up with the [facility]. Patient is agreeable with this. Patient was also instructed to follow-up with primary care physician for suture removal in 7 days. Patient understood and was agreeable with the plan. All questions were answered. Discharge Plan Triage Chief Complaint: Laceration ED Provider: Reggie Hassan Dx/Rx/DC Orders Clinical Impression: Laceration of left wrist Instructions: ED Laceration: All Closures Prescriptions: No Action NK RF: 0 Primary Care Provider: Care Physician,No Primary Referrals: Jacky Dobson MD [NON-STAFF] - 7 Days for suture removal [facility] [GROUP OF PHYSICIANS] - Keep Julia appointment Care Physician,No Primary [Primary Care Provider] - Disposition Disposition: Home, Self Care
[2021-10-29] MEDS: Diphth,Pertuss(Acell),Tet Vac 0.5 ML Vial IM (20:41)
[2021-10-29] MEDS: hydrOXYzine PAM 25 MG Capsule PO (21:57)
[2021-10-29] MEDS: Lidocaine 1% (20 ml mdv) 20 ML Vial INFILT (21:57)
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
--- NOTE | 2021-11-01 17:35 | CM.ED ---
Social Work Telephone call to patient for follow-up call. No answer. No voicemail. Roselia NEWTON, JUSTIN
== END 2021-10-29 22:10 | disposition home or self-care (01) ==
PROVIDERS: Emergency Provider Emergency Medicine; Visit Provider Emergency Medicine
DX: S61.512A Laceration without foreign body of left wrist, initial encounter (principal); F17.210 Nicotine dependence, cigarettes, uncomplicated; E66.9 Obesity, unspecified; Z23 Encounter for immunization; X58.XXXA Exposure to other specified factors, initial encounter
CPT/HCPCS: 12001; 90471; 90715; 99284

== ENCOUNTER 2022-01-14 10:32 | Outpatient (CLI) | payer MEDICAID, SELFPAY ==
[2022-01-14 11:43] LABS: Absolute Lymphocyte Count 2.29 X10^3/uL (0.83-4.51); Basophil# 0.02 X10^3/uL; Basophil% 0.3 % (0-1); Eosinophil# 0.09 X10^3/uL; Eosinophils% 1.3 % (0-5); Hematocrit 39.5 % (37-47); Hemoglobin 13.4 g/dL (12.0-15.0); Lymphocyte # 2.29 X10^3/ul (0.83-4.51); Lymphocyte % 32.6 % (19-41); Mean Corp Hgb Conc 33.9 g/dL (32-36); Mean Corpuscular Hgb 32.4 pg (27.0-32.0); Mean Corpuscular Volume 95.6 fL (81-99); Mean Platelet Vol. 11.5 fl (6.2-12.0); Monocyte# 0.53 X10^3/uL; Monocyte% 7.5 % (0-10); NRBC Flagged by Analyzer 0 % (0-5); Neutrophil # 4.01 X10^3/uL (2.7-7.7); Neutrophil % 57.2 % (47-70); Platelet Count 244 K/mm3 (150-450); RBC Distribution Width CV 12.7 % (11.6-14.6); RBC Distribution Width SD 44.6 fl (35.1-43.9); Red Blood Count 4.13 M/mm3 (4.2-5.4)
[2022-01-14 12:32] LABS: HIV - WCH Non-Reactive (Nonreactive); Hepatitis B Surface Antigen Non-Reactive (Nonreactive); Hepatitis C Antibody Non-Reactive (Nonreactive); Rubella IgG Reactive (Nonreactive); Syphilis Antibodies Non-reactive
[2022-01-15 22:07] LABS: Chlamydia By Nucleic Acid AMP Negative (Negative)
[2022-01-15 22:13] LABS: Gonococcus By Nucleic Acid AMP Negative (Negative)
[2022-01-21 13:37] LABS: HPV Reflexed? NOT INDICATED
== END 2022-01-14 23:59 | disposition home or self-care (01) ==
LOC: WOBLAB 10:33
PROVIDERS: Visit Provider Obstetrics & Gynecology
DX: Z34.81 Encounter for supervision of other normal pregnancy, first trimester (principal)
CPT/HCPCS: 36415; 85025; 86703; 86762; 86780; 86803; 87086; 87088; 87340; 87491; 87591; 88175; G0145

== ENCOUNTER → 2022-02-11 | Outpatient (CLI) | payer MEDICAID, SELFPAY ==
--- NOTE | 2022-02-11 | IMM_PTH ---
PATIENT: DONNA MCMULLEN LOC: [facility] U#:[id number] AGE/SX: 26/F ROOM: RE02/11/[address]: Dr. Bahman Cisneros MD : 1995 BED: DIS: 02/11/2022 SPEC #: [id number] RECD: 02/11/22 12:43 STATUS: SOUNara REQ #: [id number] MIGUEL ANGEL: 02/11/22 00:[address]: Bahman Cisneros DEPT: IMMUNOHISTOCHEMISTRY RECD BY: Emily Martínez ENTERED: 02/13/22 12:43 SP TYPE: IMMUNO OTHR DR: No Primary Care Phys Tissues: Uterine cervix, NOS Procedures: p16 (initial) KI-67 (add) PHYSICIAN & INSTITUTION [facility] [id number] SPECIMEN INFORMATION: Tissue Source: Cervical Biopsy Clinical Info: HGSIL Specimen Number: [id number] CPT code: 48429, 79544 METHODOLOGY: Deparaffinized sections of prefer/formalin-fixed tissue or PAP/DQ stained slides are incubated with monoclonal/polyclonal antibodies/oligonucleotide probes. Localization is made via biotin free immunoperoxidase method. Appropriate controls are performed and reacted as expected. Results on target cell population are indicated in the following table: RESULTS: ANTIBODY / CLONE RESULT P16 (E6H4) positive, focal, patchy Ki-67 (30-9) positive, low These tests were developed and their performance characteristics determined by [facility]. They may not have been cleared or approved by the U.S. Food and Drug Administration. The FDA has determined that such clearance or approval is not necessary. The above immunohistochemical/dualISH markers are ordered and reviewed by the Pathologist. INTERPRETATION: Cervix, biopsy: Mild squamous dysplasia, CLARE I (LSIL). AM:liam 02/14/2022
--- NOTE | 2022-02-11 16:00 | CER_PTH ---
PATIENT: DONNA MCMULLEN LOC: [facility] U#:[id number] AGE/SX: 26/F ROOM: RE02/11/[address]: Dr. Bahman Cisneros MD : 1995 BED: DIS: 02/11/2022 SPEC #: [id number] RECD: 02/11/22 17:54 STATUS: TANISHA REShanda #: [id number] MIGUEL ANGEL: 02/11/22 16:[address]: Bahman Cisneros DEPT: SURGICAL PATHOLOGY RECD BY: Emily Martínez ENTERED: 02/12/22 10:03 SP TYPE: CERV OT DR: No Primary Care Phys Tissues: Uterine cervix, NOS Procedures: Surgery Specimen Level IV HEADER OPERATION: Colposcopy PRE-OP DIAGNOSIS: HGSIL TISSUE SUBMITTED: Cervical Biopsy 12 & 6 o?clock MICROSCOPIC DIAGNOSIS Cervix at 6 and 12 o?clock, biopsy: Focal HPV change, CLARE I (LSIL). AM:liam 02/13/2022 COMMENT Results from immunohistochemistry ([id number]) for surrogate HPV marker (p16) will be reported separately. Case has been reviewed in consultation with Dr. Mixon who concurs with the above diagnosis. IDC:RICHARD MICROSCOPIC DESCRIPTION Slides are reviewed. GROSS DESCRIPTION Received in fixative is one container labeled with the patient's name and designated cervical biopsy. The specimen consists of two pieces measuring 0.6 x 0.6 x 0.3 cm. The specimen is totally submitted in one cassette. / RICHARD:liam 02/12/2022 TC:5 CPT: 62797
== END | disposition home or self-care (01) ==
LOC: LABSPEC 16:37
PROVIDERS: Visit Provider Obstetrics & Gynecology
DX: N87.0 Mild cervical dysplasia (principal)
CPT/HCPCS: 88305; 88341; 88342

== ENCOUNTER → 2022-05-29 | Outpatient (CLI) | payer MEDICAID, SELFPAY ==
[2022-05-29 12:00] LABS: Glucose Challenge Gest 1H 50g 134 mg/dL (70-140)
[2022-05-29 12:01] LABS: Hematocrit 35.5 % (37-47); Mean Corp Hgb Conc 33.8 g/dL (32-36); Mean Corpuscular Hgb 31.3 pg (27.0-32.0); Mean Corpuscular Volume 92.4 fL (81-99); Mean Platelet Vol. 11.2 fl (6.2-12.0); Platelet Count 243 K/mm3 (150-450); RBC Distribution Width CV 13.3 % (11.6-14.6); RBC Distribution Width SD 44.8 fl (35.1-43.9); Red Blood Count 3.84 M/mm3 (4.2-5.4); White Blood Count 11.6 K/mm3 (4.4-11.0)
== END | disposition home or self-care (01) ==
PROVIDERS: Visit Provider Obstetrics & Gynecology
DX: Z34.82 Encounter for supervision of other normal pregnancy, second trimester (principal)
CPT/HCPCS: 36415; 82950; 85027

== ENCOUNTER → 2022-06-26 | Outpatient (CLI) | payer MEDICAID, SELFPAY ==
[2022-06-26 11:42] LABS: Basophil# 0.02 X10^3/uL; Basophil% 0.2 % (0-1); Eosinophil# 0.08 X10^3/uL; Eosinophils% 0.9 % (0-5); Hematocrit 34.1 % (37-47); Hemoglobin 11.7 g/dL (12.0-15.0); Mean Corp Hgb Conc 34.3 g/dL (32-36); Mean Corpuscular Hgb 32.1 pg (27.0-32.0); Mean Corpuscular Volume 93.7 fL (81-99); Mean Platelet Vol. 10.8 fl (6.2-12.0); Monocyte# 0.49 X10^3/uL; Monocyte% 5.6 % (0-10); NRBC Flagged by Analyzer 0 % (0-5); Neutrophil # 6.01 X10^3/uL (2.7-7.7); Neutrophil % 69.4 % (47-70); Platelet Count 233 K/mm3 (150-450); RBC Distribution Width CV 13.6 % (11.6-14.6); RBC Distribution Width SD 46.5 fl (35.1-43.9); Red Blood Count 3.64 M/mm3 (4.2-5.4); White Blood Count 8.7 K/mm3 (4.4-11.0)
[2022-06-26 11:54] LABS: Protein, Urine (Random) 42.4 mg/dL (<11.9); Protein:Creat Ratio 172 mg/g CRE (0-200)
[2022-06-26 12:07] LABS: ALB/GLOB Ratio 0.6 RATIO (0.9-2.4); AST(SGOT) 9 U/L (15-37); Alanine Aminotransfer ALT/SGPT 13 U/L (13-56); Albumin, Serum 2.5 g/dL (3.2-5.0); Alkaline Phosphatase 122 U/L (45-117); Anion Gap 6 (5-15); BUN 4 mg/dL (7-18); BUN/Creat Ratio 9.2 RATIO (10-20); Calcium,Total 9.3 mg/dL (8.5-10.1); Chloride 111 mmol/L (98-107); Creatinine, Serum 0.44 mg/dL (0.55-1.02); EST Glomerular Filtration Rate 185 mL/min (>60); Est Glom Filt Rate - Afr Amer 224 mL/min (>60); Globulin 4.2 g/dL (2.2-4.2); Glucose 101 mg/dL (74-106); LDH 131 U/L (84-246); Potassium 3.6 mmol/L (3.5-5.1); Protein, Total 6.7 g/dL (6.4-8.2); Sodium Level 141 mmol/L (136-145)
== END | disposition home or self-care (01) ==
PROVIDERS: Visit Provider Obstetrics & Gynecology
DX: Z34.92 Encounter for supervision of normal pregnancy, unspecified, second trimester (principal)
CPT/HCPCS: 36415; 80053; 82570; 83615; 84156; 85025; 87086; 87088

== ENCOUNTER → 2022-07-17 | Outpatient (CLI) | payer MEDICAID, SELFPAY ==
[2022-07-17 12:24] LABS: Absolute Lymphocyte Count 2.21 X10^3/uL (0.83-4.51); Absolute Neutrophil Count 7.2 X10^3/uL (2.0-7.7); Basophil# 0.03 X10^3/uL; Basophil% 0.3 % (0-1); Eosinophil# 0.12 X10^3/uL; Eosinophils% 1.2 % (0-5); Hematocrit 33.1 % (37-47); Hemoglobin 11.4 g/dL (12.0-15.0); Lymphocyte # 2.21 X10^3/ul (0.83-4.51); Lymphocyte % 21.8 % (19-41); Mean Corp Hgb Conc 34.4 g/dL (32-36); Mean Corpuscular Hgb 32.2 pg (27.0-32.0); Mean Corpuscular Volume 93.5 fL (81-99); Mean Platelet Vol. 10.9 fl (6.2-12.0); Monocyte# 0.56 X10^3/uL; Monocyte% 5.5 % (0-10); NRBC Flagged by Analyzer 0 % (0-5); Neutrophil # 7.15 X10^3/uL (2.7-7.7); Neutrophil % 70.5 % (47-70); Platelet Count 236 K/mm3 (150-450); RBC Distribution Width CV 13.8 % (11.6-14.6); RBC Distribution Width SD 46.5 fl (35.1-43.9); Red Blood Count 3.54 M/mm3 (4.2-5.4); White Blood Count 10.1 K/mm3 (4.4-11.0)
[2022-07-17 13:42] LABS: ALB/GLOB Ratio 0.6 RATIO (0.9-2.4); AST(SGOT) 9 U/L (15-37); Alanine Aminotransfer ALT/SGPT 13 U/L (13-56); Albumin, Serum 2.4 g/dL (3.2-5.0); Alkaline Phosphatase 138 U/L (45-117); Anion Gap 9 (5-15); BUN 4 mg/dL (7-18); BUN/Creat Ratio 9.3 RATIO (10-20); Chloride 111 mmol/L (98-107); Creatinine, Serum 0.43 mg/dL (0.55-1.02); EST Glomerular Filtration Rate 187 mL/min (>60); Est Glom Filt Rate - Afr Amer 226 mL/min (>60); Globulin 4.2 g/dL (2.2-4.2); Glucose 107 mg/dL (74-106); LDH 137 U/L (84-246); Potassium 3.7 mmol/L (3.5-5.1); Protein, Total 6.6 g/dL (6.4-8.2); Sodium Level 141 mmol/L (136-145)
[2022-07-17 14:27] LABS: Protein, Urine (Random) 30.2 mg/dL (<11.9); Protein:Creat Ratio 144 mg/g CRE (0-200)
== END | disposition home or self-care (01) ==
LOC: WOBLAB 11:25
PROVIDERS: Visit Provider Obstetrics & Gynecology
DX: Z34.83 Encounter for supervision of other normal pregnancy, third trimester (principal)
CPT/HCPCS: 36415; 80053; 82570; 83615; 84156; 85025; 87077; 87086; 87088

== ENCOUNTER → 2022-07-31 | Outpatient (CLI) | payer MEDICAID, SELFPAY ==
[2022-07-31 12:37] LABS: Absolute Lymphocyte Count 2.23 X10^3/uL (0.83-4.51); Absolute Neutrophil Count 7.5 X10^3/uL (2.0-7.7); Basophil# 0.03 X10^3/uL; Basophil% 0.3 % (0-1); Eosinophils% 0.9 % (0-5); Hematocrit 35.5 % (37-47); Hemoglobin 12.1 g/dL (12.0-15.0); Lymphocyte # 2.23 X10^3/ul (0.83-4.51); Lymphocyte % 21.2 % (19-41); Mean Corp Hgb Conc 34.1 g/dL (32-36); Mean Corpuscular Hgb 31.3 pg (27.0-32.0); Mean Platelet Vol. 10.2 fl (6.2-12.0); Monocyte# 0.63 X10^3/uL; NRBC Flagged by Analyzer 0 % (0-5); Neutrophil # 7.46 X10^3/uL (2.7-7.7); Neutrophil % 70.7 % (47-70); Platelet Count 266 K/mm3 (150-450); RBC Distribution Width CV 13.6 % (11.6-14.6); RBC Distribution Width SD 45.7 fl (35.1-43.9); Red Blood Count 3.86 M/mm3 (4.2-5.4); White Blood Count 10.5 K/mm3 (4.4-11.0)
[2022-07-31 12:50] LABS: Creatinine, Urine (random) < 13.00 mg/dL (NO RANGE EST.); Protein, Urine (Random) < 6.0 mg/dL (<11.9)
[2022-07-31 13:13] LABS: ALB/GLOB Ratio 0.6 RATIO (0.9-2.4); AST(SGOT) 11 U/L (15-37); Alanine Aminotransfer ALT/SGPT 15 U/L (13-56); Albumin, Serum 2.6 g/dL (3.2-5.0); Alkaline Phosphatase 188 U/L (45-117); Anion Gap 7 (5-15); BUN 4 mg/dL (7-18); BUN/Creat Ratio 8.7 RATIO (10-20); Chloride 109 mmol/L (98-107); Creatinine, Serum 0.46 mg/dL (0.55-1.02); EST Glomerular Filtration Rate 173 mL/min (>60); Est Glom Filt Rate - Afr Amer 210 mL/min (>60); Globulin 4.4 g/dL (2.2-4.2); Glucose 89 mg/dL (74-106); LDH 129 U/L (84-246); Potassium 3.6 mmol/L (3.5-5.1); Sodium Level 139 mmol/L (136-145)
== END | disposition home or self-care (01) ==
PROVIDERS: Visit Provider Obstetrics & Gynecology
DX: Z36.85 Encounter for antenatal screening for Streptococcus B (principal); O13.9 Gestational [pregnancy-induced] hypertension without significant proteinuria, unspecified trimester
CPT/HCPCS: 36415; 80053; 82570; 83615; 84156; 85025; 87081; 87086; 87088

== ENCOUNTER → 2022-08-06 | Outpatient (CLI) | payer MEDICAID, SELFPAY ==
[2022-08-06 12:20] LABS: Protein, Urine (Random) 29.8 mg/dL (<11.9); Protein:Creat Ratio 131 mg/g CRE (0-200)
[2022-08-06 12:24] LABS: Absolute Lymphocyte Count 1.54 X10^3/uL (0.83-4.51); Absolute Neutrophil Count 6.7 X10^3/uL (2.0-7.7); Basophil# 0.02 X10^3/uL; Basophil% 0.2 % (0-1); Eosinophil# 0.06 X10^3/uL; Eosinophils% 0.7 % (0-5); Hematocrit 34.5 % (37-47); Lymphocyte # 1.54 X10^3/ul (0.83-4.51); Lymphocyte % 17.4 % (19-41); Mean Corp Hgb Conc 34.8 g/dL (32-36); Mean Corpuscular Hgb 32.4 pg (27.0-32.0); Mean Corpuscular Volume 93.2 fL (81-99); Mean Platelet Vol. 10.7 fl (6.2-12.0); Monocyte# 0.45 X10^3/uL; Monocyte% 5.1 % (0-10); NRBC Flagged by Analyzer 0 % (0-5); Neutrophil # 6.71 X10^3/uL (2.7-7.7); Platelet Count 233 K/mm3 (150-450); RBC Distribution Width CV 13.8 % (11.6-14.6); RBC Distribution Width SD 46.8 fl (35.1-43.9); White Blood Count 8.8 K/mm3 (4.4-11.0)
[2022-08-06 12:35] LABS: ALB/GLOB Ratio 0.6 RATIO (0.9-2.4); AST(SGOT) 16 U/L (15-37); Alanine Aminotransfer ALT/SGPT 21 U/L (13-56); Albumin, Serum 2.4 g/dL (3.2-5.0); Alkaline Phosphatase 224 U/L (45-117); Anion Gap 7 (5-15); BUN 6 mg/dL (7-18); BUN/Creat Ratio 11.6 RATIO (10-20); Chloride 108 mmol/L (98-107); Creatinine, Serum 0.52 mg/dL (0.55-1.02); EST Glomerular Filtration Rate 151 mL/min (>60); Est Glom Filt Rate - Afr Amer 182 mL/min (>60); Globulin 4.1 g/dL (2.2-4.2); Glucose 106 mg/dL (74-106); LDH 149 U/L (84-246); Potassium 3.7 mmol/L (3.5-5.1); Protein, Total 6.5 g/dL (6.4-8.2); Sodium Level 139 mmol/L (136-145)
== END | disposition home or self-care (01) ==
LOC: WOBLAB 10:57
PROVIDERS: Visit Provider Obstetrics & Gynecology
DX: Z34.83 Encounter for supervision of other normal pregnancy, third trimester (principal)
CPT/HCPCS: 36415; 80053; 82570; 83615; 84156; 85025; 87086; 87088

== ENCOUNTER 2022-08-11 06:38 | Inpatient (IN) | payer MEDICAID, SELFPAY ==
[2022-08-11] VITALS (37 sets, daily range): BP systolic 120–157; BP diastolic 61–90; PULSE 67–94; TEMP 35.9–37.1; O2SAT 95–100; BMI 49.0
--- NOTE | 2022-08-11 09:24 | PCM.HP.BLA ---
History and Physical Date of Admission: 08/11/22 Chief complaint: Induction of labor gestational hypertension History present illness: 27-year-old G3, P1 at 37 weeks and 0 days with ANETA 09/01/2022 arrives for induction of labor with gestational hypertension. Denies headache, visual changes, chest pain, shortness of breath, nausea vomit, right upper quadrant pain. Patient states good movement. is complicated by gestational hypertension Obstetric history: G1: 8 pounds 13 ounces female G2: SAB G3: Current Past medical history: None Medications: vitamin Past surgical history: Cholecystectomy, removal of toe tumor Allergies: No known drug allergy Social history: Former smoker, denies alcohol or drug use Family history: Denies history DVT or PE Review of systems: Besides above pertinent positives a full review of systems was performed and found to be negative Physical exam: Vitals: Blood pressure 120/64 pulse 94 temperature 97.7 ?F General: Normal-appearing no acute distress HEENT: Normocephalic/atraumatic no cervical of adenopathy Cardiac/respiratory: No accessory muscles, nonlabored breathing Abdomen: Soft, nontender, gravid Extremities: No peripheral edema normal peripheral pulses Psych: Normal affect normal demeanor nonpressured speech Labs: Pending Assessment plan: 27-year-old at 37 weeks and 0 days arrives for induction of labor for gestational hypertension Admit labor and delivery CEFM Pitocin induction GBS negative Gestational hypertension: For HELLP labs. We will continue to monitor blood pressure
[2022-08-11] MEDS: Lactated Ringers 1,000 ML 50 ML IV (09:25)
[2022-08-11] MEDS: Oxytocin 15 Units/NS 250ml 15 UNITS/250 ML IV.SOLN 2 UNITS IV (09:28)
[2022-08-11 09:36] LABS: Absolute Lymphocyte Count 2.34 X10^3/uL (0.83-4.51); Absolute Neutrophil Count 6.8 X10^3/uL (2.0-7.7); Basophil# 0.02 X10^3/uL; Basophil% 0.2 % (0-1); Eosinophil# 0.14 X10^3/uL; Eosinophils% 1.4 % (0-5); Hematocrit 33.3 % (37-47); Hemoglobin 12.2 g/dL (12.0-15.0); Lymphocyte # 2.34 X10^3/ul (0.83-4.51); Lymphocyte % 23.6 % (19-41); Mean Corp Hgb Conc 36.6 g/dL (32-36); Mean Corpuscular Hgb 32.8 pg (27.0-32.0); Mean Corpuscular Volume 89.5 fL (81-99); Mean Platelet Vol. 10.1 fl (6.2-12.0); Monocyte# 0.53 X10^3/uL; Monocyte% 5.3 % (0-10); NRBC Flagged by Analyzer 0 % (0-5); Neutrophil # 6.82 X10^3/uL (2.7-7.7); Neutrophil % 68.8 % (47-70); Platelet Count 252 K/mm3 (150-450); RBC Distribution Width CV 13.9 % (11.6-14.6); RBC Distribution Width SD 44.8 fl (35.1-43.9); Red Blood Count 3.72 M/mm3 (4.2-5.4); White Blood Count 9.9 K/mm3 (4.4-11.0)
[2022-08-11 10:08] LABS: ALB/GLOB Ratio 0.6 RATIO (0.9-2.4); AST(SGOT) 12 U/L (15-37); Alanine Aminotransfer ALT/SGPT 16 U/L (13-56); Albumin, Serum 2.4 g/dL (3.2-5.0); Alkaline Phosphatase 214 U/L (45-117); Anion Gap 11 (5-15); BUN 6 mg/dL (7-18); Calcium,Total 8.9 mg/dL (8.5-10.1); Chloride 107 mmol/L (98-107); Creatinine, Serum 0.46 mg/dL (0.55-1.02); EST Glomerular Filtration Rate 172 mL/min (>60); Est Glom Filt Rate - Afr Amer 208 mL/min (>60); Estimated Creatinine Clearance 191.98 ml/min; Globulin 4.3 g/dL (2.2-4.2); Glucose 94 mg/dL (74-106); LDH 119 U/L (84-246); Potassium 3.8 mmol/L (3.5-5.1); Protein, Total 6.7 g/dL (6.4-8.2); Sodium Level 140 mmol/L (136-145)
--- NOTE | 2022-08-11 18:15 | PN.OBGYN_ITS ---
Subjective Subjective Patient seen and examined. Comfortable in chair. Objective Data Objective Data Vital Signs: Vital Signs Temp Pulse BP Pulse Ox 96.6 F L 75 129/75 H 99 08/11/22 16:57 08/11/22 16:56 08/11/22 16:56 08/11/22 16:56 Weight: 150.593 kg Body Mass Index (BMI) 49.0 Intake & Output: Intake and Output for Last 24 Hours 08/09/22 08/10/22 08/11/22 23:59 23:59 23:59 Intake Total 59.26 / 59.26 Balance 59.26 / 59.26 Lab / Micro Data Result Diagrams: 08/11/22 09:15 08/11/22 09:15 Labs: Laboratory Results - last 24 hr 08/11/22 09:15: WBC 9.9, RBC 3.72 L, Hgb 12.2, Hct 33.3 L, MCV 89.5, MCH 32.8 H, MCHC 36.6 H D, RDW Std Deviation 44.8 H, RDW Coeff of Amaris 13.9, Plt Count 252, MPV 10.1, Immature Gran % (Auto) 0.700, Neut % (Auto) 68.8, Lymph % (Auto) 23.6, Gregory % (Auto) 5.3, Eos % (Auto) 1.4, Baso % (Auto) 0.2, Absolute Neuts (auto) 6.8, Absolute Lymphs (auto) 2.34, Nucleated RBC % 0 08/11/22 09:15: Blood Type O POSITIVE, Antibody Screen NEGATIVE 08/11/22 09:15: Sodium 140, Potassium 3.8, Chloride 107, Carbon Dioxide 22.0, Anion Gap 11, BUN 6 L, Creatinine 0.46 L, Estim Creat Clear Calc 191.98, Est GFR (MDRD) Af Amer 208, Est GFR (MDRD) Non-Af 172, BUN/Creatinine Ratio 13.0, Glucose 94, Calcium 8.9, Total Bilirubin 0.20, AST 12 L, ALT 16, Alkaline Phosphatase 214 H, Lactate Dehydrogenase 119, Total Protein 6.7, Albumin 2.4 L, Globulin 4.3 H, Albumin/Globulin Ratio 0.6 L Micro: Microbiology 08/11/22 09:13 Nasal Secretion SARS-CoV-2 Antigen (Rapid) - Final Physical Exam Const alert, oriented x3 and no apparent distress Resp normal respiratory effort GI soft to palpation and non-tender Inspection: gravid Narrative: 360/-3, AROM clear fluid. IUPC/FSE placed. Extremity normal to inspection NST FHR Rate Baby A Baseline: 145 Variability:: Moderate Accelerations:: 15 x 15 Decelerations:: Variable (occasional) FHR Category:: Category I Uterine Activity:: q2-3 Assessment & Plan (1) Gestational HTN: PLAN: Continued induction of labor for gestational hypertension. AROM. Continue titrating Pitocin as tolerated.
[2022-08-11] MEDS: Mag Hydrox/Al Hydrox/Simeth 30 ML UDC PO (18:39)
[2022-08-11] MEDS: Ondansetron 4 MG/2 ML Vial IV (19:48)
[2022-08-11] MEDS: LACTATED RINGERS 500 ML 999 ML IV (22:28)
[2022-08-11] MEDS: fentaNYL-bupivacaine (epidural) 100 ML BAG EPIDURAL (22:58)
[2022-08-11] MEDS: Lactated Ringers 1,000 ML 200 ML IV (23:23)
[2022-08-12] VITALS (41 sets, daily range): BP systolic 112–171; BP diastolic 55–82; PULSE 73–131; RESP 16–18; TEMP 35.7–37.9; O2SAT 85–100
[2022-08-12] MEDS: Oxytocin 15 Units/NS 250ml 15 UNITS/250 ML IV.SOLN 14 UNITS IV (02:21)
[2022-08-12] MEDS: fentaNYL-bupivacaine (epidural) 100 ML BAG EPIDURAL (03:13)
--- NOTE | 2022-08-12 05:17 | EX.PCM.OBRPT ---
Vaginal Delivery Operative Information Date of Procedure: 08/12/22 Pre-Operative Diagnosis: Tabares intrauterine , gestational hypertension Post-Operative Diagnosis: Tabares intrauterine , gestational hypertension Surgery / Procedure Performed: Spontaneous Vaginal Delivery Type of Anesthesia: Epidural Estimated Blood Loss: 250cc Findings Description of Procedure: Spontaneous vaginal delivery viable infant female. Nuchal cord x1, loose, reduced. Baby to mom. Cord clamped and cut. Spontaneous delivery of placenta. No perineal laceration. Periclitoral abrasion, hemostatic without intervention. A Gender: Female (1 minute): 9 (5 minute): 9
[2022-08-12] MEDS: Ondansetron 4 MG/2 ML Vial IV (05:37)
[2022-08-12] MEDS: Acetaminophen 500 MG Tablet 1000 MG PO (13:22)
[2022-08-13] VITALS (10 sets, daily range): BP systolic 112–134; BP diastolic 54–79; PULSE 69–77; RESP 16–17; TEMP 35.9–36.4; O2SAT 96–100
--- NOTE | 2022-08-13 05:07 | PN.OBGYN_ITS ---
Subjective Subjective Feeling well. Cramping controlled with pain medication. Formula feeding. No overnight concerns. Objective Data Objective Data Vital Signs: Vital Signs Temp Pulse Resp BP Pulse Ox O2 Del Method 97.6 F L 77 17 112/54 L 96 Room Air 08/13/22 00:10 08/13/22 00:10 08/13/22 00:10 08/13/22 00:10 08/13/22 00:10 08/13/22 00:10 Oxygen Delivery Method Room Air Weight: 150.593 kg Body Mass Index (BMI) 49.0 Intake & Output: Intake and Output for Last 24 Hours 08/11/22 08/12/22 08/13/22 23:59 23:59 23:59 Intake Total 1317.29 / 1317.29 1377.87 / 1377.87 Output Total 700 / 700 Balance 1317.29 / 1317.29 677.87 / 677.87 Lab / Micro Data Result Diagrams: 08/11/22 09:15 08/11/22 09:15 Micro: Microbiology 08/11/22 09:13 Nasal Secretion SARS-CoV-2 Antigen (Rapid) - Final Physical Exam Const alert, oriented x3 and no apparent distress HEENT normocephalic Head and Scalp: atraumatic Neck full ROM Resp normal respiratory effort Cardio regular rate GI normal to inspection, nondistended, normoactive bowel sounds GI Narrative: Uterus 2 cm below umbilicus Back/Spine normal ROM Extremity normal to inspection Extremity Narrative: Minimal pedal edema Neuro no focal motor deficits and no sensory deficits noted Psych mental status grossly normal and affect normal Assessment & Plan (1) Gestational HTN: PLAN: day 1 status post . Complicated by gestational hypertens ion. Blood pressures been well controlled since delivery. Not on any medications. Likely home tomorrow, would consider later this evening depending on blood pressures throughout the day. Will need follow-up with blood pressure check later this week versus next week.
--- NOTE | 2022-08-13 05:08 | DCINST_ITS ---
Discharge Instructions Diet Discharge Diet: No restrictions Activity Discharge Activity: Return to Normal Activity and May Shower May resume sexual activity in: 4-6 weeks Weight Bearing Status: Weight bearing as tolerated Lifting Restrictions: No greater than 25 pounds Dressing / Incision Call your doctor if you observe: Fever of 101 or Higher, Change in Color, Inability to urinate, Using more than 1 pad per hour, Shortness of breath, Dizziness, Swelling in the ankles, Chest pain and Calf discomfort Follow Up Care Please Follow Up With: Bahman Cisneros MD When: 1 week BP check with RN, 4-6w visit. Test Results: Test results from this visit will be discussed in further detail at your follow- up appointment, if applicable. Discharge Plan Admission Admit Date/Time: 08/11/22 06:38 Primary Reason for Your Visit: Vaginal delivery Attending Provider: Bahman Cisneros Primary Care Provider: Care Physician,Maria Guadalupe Primary Discharge Orders/Prescriptions Prescriptions: No Action 1 mg Tablet 1 tab PO DAILY Referrals / Follow Up: Care Physician,No Primary [Primary Care Provider] -
[2022-08-13] MEDS: Acetaminophen 500 MG Tablet 1000 MG PO (06:46)
[2022-08-13] MEDS: Ibuprofen 600 MG Tablet PO (12:54)
== END 2022-08-13 13:55 | disposition home or self-care (01) | DRG 560 ==
PROVIDERS: Admitting Provider Obstetrics & Gynecology; Referring Provider Obstetrics & Gynecology; Visit Provider Obstetrics & Gynecology
DX: O13.4 Gestational [pregnancy-induced] hypertension without significant proteinuria, complicating childbirth (principal); Z37.0 Single live birth; O69.81X0 Labor and delivery complicated by cord around neck, without compression, not applicable or unspecified; Z3A.37 37 weeks gestation of pregnancy; Z87.891 Personal history of nicotine dependence; Z20.822 Contact with and (suspected) exposure to COVID-19
CPT/HCPCS: 59025; 59050; 80053; 83615; 85025; 86850; 86900; 86901; 87426; 99218; 99406; J7120; 90686; G0378; J2405

== ENCOUNTER 2023-02-13 12:46 | Emergency (ER) | payer MEDICAID, SELFPAY ==
[2023-02-13 12:46] VITALS: BP 155/94; PULSE 100; RESP 18; TEMP 35.9; O2SAT 99; BMI 49.3
[2023-02-13 13:14] LABS: Absolute Lymphocyte Count 2.25 X10^3/uL (0.83-4.51); Absolute Neutrophil Count 10.9 X10^3/uL (2.0-7.7); Basophil# 0.05 X10^3/uL; Basophil% 0.4 % (0-1); Eosinophil# 0.23 X10^3/uL; Eosinophils% 1.6 % (0-5); Hemoglobin 14.5 g/dL (12.0-15.0); Lymphocyte # 2.25 X10^3/ul (0.83-4.51); Lymphocyte % 15.9 % (19-41); Mean Corp Hgb Conc 33.7 g/dL (32-36); Mean Corpuscular Hgb 31.8 pg (27.0-32.0); Mean Corpuscular Volume 94.3 fL (81-99); Mean Platelet Vol. 10.5 fl (6.2-12.0); Monocyte# 0.65 X10^3/uL; Monocyte% 4.6 % (0-10); NRBC Flagged by Analyzer 0 % (0-5); Neutrophil # 10.93 X10^3/uL (2.7-7.7); Neutrophil % 77.1 % (47-70); Platelet Count 247 K/mm3 (150-450); RBC Distribution Width CV 14.3 % (11.6-14.6); RBC Distribution Width SD 48.6 fl (35.1-43.9); Red Blood Count 4.56 M/mm3 (4.2-5.4); White Blood Count 14.2 K/mm3 (4.4-11.0)
[2023-02-13 13:29] LABS: ALB/GLOB Ratio 0.9 RATIO (0.9-2.4); AST(SGOT) 70 U/L (15-37); Alanine Aminotransfer ALT/SGPT 41 U/L (13-56); Albumin, Serum 3.3 g/dL (3.2-5.0); Alkaline Phosphatase 90 U/L (45-117); Anion Gap 7 (5-15); BUN 11 mg/dL (7-18); BUN/Creat Ratio 15.4 RATIO (10-20); Calcium,Total 8.6 mg/dL (8.5-10.1); Chloride 109 mmol/L (98-107); Creatinine, Serum 0.71 mg/dL (0.55-1.02); EST Glomerular Filtration Rate 104 mL/min (>60); Est Glom Filt Rate - Afr Amer 126 mL/min (>60); Estimated Creatinine Clearance 124.38 ml/min; Globulin 3.8 g/dL (2.2-4.2); Glucose 111 mg/dL (74-106); Potassium 3.6 mmol/L (3.5-5.1); Protein, Total 7.1 g/dL (6.4-8.2); Sodium Level 140 mmol/L (136-145)
[2023-02-13 13:37] LABS: Internal QC Validated? YES +Cl - CLEAR BKGD; Pregnancy, Serum, hCG Quali. NEGATIVE Negative
[2023-02-13 13:44] LABS: Lipase 32 U/L (13-75)
--- NOTE | 2023-02-13 13:51 | US_ITS ---
STUDY: ABDOMINAL ULTRASOUND - RIGHT UPPER QUADRANT REASON FOR VISIT: Female, 27 years old . Right upper quadrant pain. TECHNIQUE: Ultrasound evaluation of the right upper quadrant was performed with real-time and static juan-scale imaging. TECHNICAL QUALITY: Adequate. COMPARISON: Comparison is made with prior study December 28, 2018. FINDINGS: Liver: The liver is enlarged and measures 18.9 cm. There is normal echogenicity of the liver. The bile ducts are within normal limits. There is hepatic color flow. The direction of portal flow is hepatopetal. There is no demonstrated mass lesion. Gallbladder: The patient is status post cholecystectomy. Common Bile Duct (C.B.D.): The common bile duct measures 4 mm. Pancreas: Normal size of the head, body and tail of the pancreas. There is normal echogenicity of the pancreas. There is no demonstrated pancreatic mass or cyst. Right Kidney: Normal size of the right kidney. The right kidney measures 13.6 cm x 4.8 cm x 5.4 cm. Normal renal cortex. The right cortex measures 1.6 cm. There is no demonstrated renal mass or cyst. There is no right hydronephrosis. US/Abdomen Limited IMPRESSION: Status post cholecystectomy. No acute abnormality is seen. Electronically Signed: Maximus Cunningham MD at 15:05 EDT ,
--- NOTE | 2023-02-13 13:55 | ED.VIS.GI ---
HPI HPI - GI History of Present Illness Chief Complaint: Abd Pain Informant: patient Narrative Narrative: Patient is a 27 year old female with history of cholecystectomy [address] Leonardo presenting with worsening epigastric abdominal pain. Patient states since the surgery and really over the past 3 months she has had intermittent episodes of epigastric abdominal pain that radiates to her back and up to her neck. She states that the same symptoms she had when she had her gallbladder out initially. This week she has had 4 episodes in 1 week which is abnormal. Today she had pain causing for the past 3 hours which waxes and wanes in intensity. She has had nausea but no vomiting. She states she had diarrhea since her gallbladder has been removed. She denies any associated shortness of breath or chest pain but notes that when the pain is severe it takes her breath away. She denies any urinary symptoms. Did not take any medications prior to arrival such as ibuprofen or Tylenol stating that they just do not work. Her last menstrual period was 10 days ago and she is not concerned for . No report of any fevers. Her stepfather dropped her off to the ER. No other complaints at this time. Patient does drink alcohol intermittently but has not had any since last weekend. She does use THC. Denies any other drug use. PFSH [facility] Medical History Depression Family history of hearing loss at age younger than 7 years Gestational HTN Headache Home Medications famotidine 40 mg tablet (Pepcid) 40 mg PO DAILY #30 tabs 02/13/23 [Rx Last Taken Unknown] ondansetron 4 mg disintegrating tablet 4 mg PO Q8H PRN PRN Nausea #10 tabs 02/13/23 [Rx Last Taken Unknown] Allergy/AdvReac Type Severity Reaction Status Date / Time No Known Allergies Allergy Verified 02/13/23 12:48 Surgical History Hx of cholecystectomy Social History Smoking Status: Current every day smoker tobacco type: cigarettes ROS ROS ED Constitutional Constitutional ED: Denies chills or fever(s) ENT ENT ED: Denies sore throat Cardiovascular Cardiovascular: Denies chest pain or palpitations Respiratory/Chest Respiratory/Chest: Denies cough or dyspnea Gastrointestinal Gastrointestinal: Reports abdominal pain, diarrhea and nausea; Denies constipation, melena or vomiting Genitourinary Genitourinary ED: Denies dysuria or hematuria Musculoskeletal Musculoskeletal: Reports back pain; Denies arthralgias or myalgias Integumentary Denies rash Neurologic Neurologic: Denies headache(s) or weakness Psychiatric Psychiatric: Denies anxiety Hematologic/Lymphatic Hematologic/Lymphatic: Denies easy bleeding or easy bruising EXAM Physical Exam Const Vital Signs: 02/13/23 12:46 Temperature 96.7 F L Temperature Source Temporal Pulse Rate 100 Respiratory Rate 18 Blood Pressure 155/94 H Blood Pressure Mean 114 Pulse Ox 99 Oxygen Delivery Method Room Air Positive well nourished and well developed General Appearance ED: well developed and NAD HEENT Reports moist mucous membranes normocephalic and atraumatic Eyes PERRL and EOMs intact bilaterally General Eye ED: Negative for scleral icterus Neck supple Chest Wall Chest Narrative: No chest wall tenderness to palpation Resp normal respiratory effort and clear to auscultation bilaterally Cardio regular rate, regular rhythm and no murmurs GI non-distended GI Narrative: Mild epigastric tenderness palpation. Negative Guzman sign. Palpation: soft; Negative for guarding, rigid or rebound tenderness present Back/Spine no CVA tenderness Extremity full ROM General Extremety ED: Negative for edema General Extremity: Negative for edema Neuro moves all extremities Sensorium / Orientation: alert Psych mental status grossly normal and thought process normal Skin no wounds MDM MDM MDM Narrative Medical decision making narrative: Patient is evaluated for worsening epigastric abdominal pain that radiates to her back and up into her neck. This has been having intermittently for months but has been worse this week. She has a history of cholecystitis and this pain feels the same. Differential includes pancreatitis, choledocholithiasis, small bowel obstruction and colitis. Patient's work-up is remarkable for a leukocytosis of 14.2. CMP largely normal with a normal lipase. She has a very mildly elevated AST of 70 and normal ALT with a normal alkaline phosphatase and normal bilirubin. I think this is less likely for choledocholithiasis but given her associated leukocytosis will obtain of right upper quadrant ultrasound. Urine was negative. Ultrasound is consistent with prior cholecystectomy with no acute abnormality seen. No significant dilation of the common bile duct. The liver is mildly enlarged. Patient requires re-medication for pain and is still having pain. Given that she also has a leukocytosis we will obtain a CT of the abdomen pelvis to look for any further cause of her pain and leukocytosis. I did discuss with the patient that things like esophagitis and gastritis/GERD do not always show up on imaging. Given patient's young age and lack of cardiopulmonary symptoms have a low suspicion for referred pain from the heart or the lungs. CT does not show any acute process. Patient be treated with antacids and GI cocktail. We discharged home with a prescription for Pepcid and Zofran. Counseled on return precautions. Counseled the exact cause of her symptoms is not clear today. Is given referral back to her surgeon, Dr. Leonardo. Given return precautions. Patient verbalizes agreement understand with this plan. Patient resting comfortably when I reevaluated her at time of discharge. Lab Data Attestation: I reviewed the patient's lab results. Labs: Laboratory Results - last 24 hr 02/13/23 02/13/23 02/13/23 13:03 13:03 13:03 WBC 14.2 H RBC 4.56 Hgb 14.5 Hct 43.0 MCV 94.3 MCH 31.8 MCHC 33.7 RDW Std Deviation 48.6 H RDW Coeff of Amaris 14.3 Plt Count 247 MPV 10.5 Immature Gran % (Auto) 0.400 Neut % (Auto) 77.1 H Lymph % (Auto) 15.9 L [place] % (Auto) 4.6 Eos % (Auto) 1.6 Baso % (Auto) 0.4 Absolute Neuts (auto) 10.9 H Absolute Lymphs (auto) 2.25 Nucleated RBC % 0 Sodium 140 Potassium 3.6 Chloride 109 H Carbon Dioxide 24.0 Anion Gap 7 BUN 11 Creatinine 0.71 Estim Creat Clear Calc 124.38 Est GFR (MDRD) Af Amer 126 Est GFR (MDRD) Non-Af 104 BUN/Creatinine Ratio 15.4 Glucose 111 H Calcium 8.6 Total Bilirubin 0.60 AST 70 H ALT 41 Alkaline Phosphatase 90 Total Protein 7.1 Albumin 3.3 Globulin 3.8 Albumin/Globulin Ratio 0.9 Lipase Serum , Qual NEGATIVE 02/13/23 13:03 WBC RBC Hgb Hct MCV MCH MCHC RDW Std Deviation RDW Coeff of Amaris Plt Count MPV Immature Gran % (Auto) Neut % (Auto) Lymph % (Auto) [place] % (Auto) Eos % (Auto) Baso % (Auto) Absolute Neuts (auto) Absolute Lymphs (auto) Nucleated RBC % Sodium Potassium Chloride Carbon Dioxide Anion Gap BUN Creatinine Estim Creat Clear Calc Est GFR (MDRD) Af Amer Est GFR (MDRD) Non-Af BUN/Creatinine Ratio Glucose Calcium Total Bilirubin AST ALT Alkaline Phosphatase Total Protein Albumin Globulin Albumin/Globulin Ratio Lipase 32 Serum , Qual Radiography Diagnostic Testing: Clinical Impression(s) from Imaging Studies Abdomen Ultrasound 02/13/23 13:51 IMPRESSION: Status post cholecystectomy. No acute abnormality is seen. Electronically Signed: Maximus Cunningham MD at 15:05 EDT , Abdomen/Pelvis CT 02/13/23 15:43 IMPRESSION: No acute abnormal finding in the abdomen or pelvis. Bilateral L5 pars defects. Electronically Signed: Higinio Morrissey MD at 16:35 EDT , Discharge Plan Triage Chief Complaint: Abd Pain ED Provider: Jocelyne Boyer Dx/Rx/DC Orders Clinical Impression: Abdominal pain, epigastric, Nausea, Leukocytosis Instructions: ED Epigastric Pain Uncertain Cause Prescriptions: New famotidine [Pepcid] 40 mg tablet 40 mg PO DAILY Qty: 30 0RF ondansetron 4 mg tablet,disintegrating 4 mg PO Q8H PRN PRN (Reason: Nausea) Qty: 10 0RF Primary Care Provider: Care Physician,No Primary Referrals: Odalys Treviño MD [Med Staff - Director Of Corporate Sales] - As Needed Lizzette Leonardo MD [Med Staff - Active Staff] - 1-2 Weeks Care Physician,No Primary [Primary Care Provider] - Activity Restrictions/Additional Instructions: Your work-up today showed a mild elevation of your white blood cell counts but no acute abnormalities to explain it. You have been started on an antacid as well as nausea medicine and given referral back to your surgeon. Please return to the ER if your symptoms progress or worsen. Your work-up does not show findings consistent with retained gallstone, appendicitis, pancreatitis or obstruction of the bowels. Disposition Disposition: Home, Self Care
[2023-02-13] MEDS: Ondansetron 4 MG/2 ML Vial IV (14:07)
[2023-02-13] MEDS: Ketorolac 15 MG/ML Vial IV (14:07)
[2023-02-13] MEDS: Morphine 4 MG/ML Syringe 6 MG IV (14:08)
[2023-02-13] MEDS: 0.9% Normal Saline 1,000 ML 1000 ML IV (14:09)
--- NOTE | 2023-02-13 15:43 | CT_ITS ---
STUDY: CT ABDOMEN AND PELVIS WITH CONTRAST REASON FOR EXAM: Female, 27 years old. Epigastric abdominal pain RADIATION DOSAGE (If Supplied By Facility): CTDIvol = ( 24.55 ) mGy, DLP = ( 1513.70 ) mGycm TECHNIQUE: IV 100mL Isovue-300 was administered. Transaxial images were obtained from the dome of the diaphragm to the symphysis pubis. Multiplanar coronal and sagittal images were reformatted. Individualized Dose Optimization Techniques Were Used For This CT. COMPARISON: Concurrent abdomen ultrasound FINDINGS: The visualized lung bases are unremarkable. The visualized portions of the heart are within normal limits. Normal liver. Prior cholecystectomy. Normal spleen. Normal pancreas. Normal bilateral adrenal glands. Normal visualized stomach. Normal small intestine. Normal colon. The appendix is visualized and appears normal. Normal abdominal aorta. No retroperitoneal adenopathy. Normal right kidney. Normal left kidney. Normal urinary bladder. Normal visualized uterus. Normal abdominal wall. Bilateral L5 pars defects with grade 1 L5-S1 anter[address]hesis. CT/Abdomen/Pelvis W IV Cont ONLY IMPRESSION: No acute abnormal finding in the abdomen or pelvis. Bilateral L5 pars defects. Electronically Signed: Higinio Morrissey MD at 16:35 EDT ,
[2023-02-13] MEDS: Morphine 4 MG/ML Syringe IV (15:56)
--- NOTE | 2023-02-13 15:56 | CM.ED ---
Social Work SW introduced self and role. SW discussed PCP options with patient who does not currently have a PCP. Resource list given to patient. Briana Stokes TODDLER TEACHER, WELDER SETTER [employer]
== END 2023-02-13 17:54 | disposition home or self-care (01) ==
PROVIDERS: Emergency Provider Emergency Medicine; Visit Provider Emergency Medicine
DX: R10.13 Epigastric pain (principal); R16.0 Hepatomegaly, not elsewhere classified; D72.829 Elevated white blood cell count, unspecified; F17.210 Nicotine dependence, cigarettes, uncomplicated; Z90.49 Acquired absence of other specified parts of digestive tract
CPT/HCPCS: 76705; 74177; 80053; 83690; 84703; 85025; 96361; 96374; 96375; 96376; 99283; J7030; Q9967; A4216; J2405

== ENCOUNTER 2023-07-13 18:15 | Emergency (ER) | payer MEDICAID, SELFPAY ==
[2023-07-13 18:16] VITALS: BP 158/105; PULSE 99; RESP 16; TEMP 36.8; O2SAT 97
--- NOTE | 2023-07-13 19:28 | US_ITS ---
STUDY: FIRST TRIMESTER OBSTETRICAL ULTRASOUND REASON FOR EXAM: Female, 28 years old miscarriage--heavy bleeding LMP: TECHNIQUE: Transvaginal TECHNICAL QUALITY: Adequate. PRIOR ULTRASOUND: None. FINDINGS: There is no evidence for intrauterine gestational sac. The uterus measures 13.7 x 9.6 x 8.2 cm. There is mild complex fluid within the endocervical canal likely blood There is no demonstrated uterine fibroid. The cervix is closed. Normal right ovary is not visualized. There is no adnexal mass The left ovary measures 3.4 x 2.2 x 1.5 cm. There is no left ovarian cyst. There is no visualized left adnexal mass or complex lesion. There is no fluid in the cul de sac. US/Transvaginal w/Preg US IMPRESSION: No evidence for intrauterine gestation or definitive evidence for ectopic Findings which may be consistent with completed spontaneous . Clinical correlation is recommended and follow-up studies if clinically warranted. Electronically Signed: Balwinder Lance MD at 20:49 EDT ,
--- NOTE | 2023-07-13 19:29 | ED.VIS.FEGU ---
HPI HPI - Female History of Present Illness Chief Complaint: Vag Bld, Preg Detail of Chief Complaint: 28-year-old female with at home. Informant: patient Pain Pain: Positive for Pelvic Pain Onset: Today Quality: Positive for Cramping Current Severity: Mild Maximum Severity: Mild Bleeding Issue: Positive for Vaginal bleeding, Passing clots and Passing tissue Associated Symptoms Associated Symptoms: Negative for Dysuria, Frequency or Urgency Test: Positive Sexually: Positive for Active Control: No control P: 2 Narrative Narrative: 20-year-old female G3, P2 Ab0. Was with no care. Has no idea how far along she was because she has had a baby about 7 months ago. On line she ordered a pills. She used those yesterday and today. Today she passed a formed fetus. She has been having vaginal bleeding and cramping. Her reported blood type is O+. Prior similar symptoms: No Recent Illness/Hospitalization: No PFSH PFSH Medical History Depression Family history of hearing loss at age younger than 7 years Gestational HTN Headache Home Medications famotidine 40 mg tablet (Pepcid) 40 mg PO DAILY #30 tabs 02/13/23 [Rx Last Taken Unknown] ondansetron 4 mg disintegrating tablet 4 mg PO Q8H PRN PRN Nausea #10 tabs 02/13/23 [Rx Last Taken Unknown] Allergy/AdvReac Type Severity Reaction Status Date / Time No Known Allergies Allergy Verified 02/13/23 12:48 Surgical History Hx of cholecystectomy Social History Smoking Status: Current every day smoker tobacco type: cigarettes ROS ROS ED ROS Narrative Vaginal bleeding and cramping. Review of Systems ROS Unobtainable: Denies due to encephalopathy Constitutional Constitutional ED: Denies chills, fever(s) or subjective Eyes Eyes: Denies blurry vision ENT ENT ED: Denies ear pain Cardiovascular Cardiovascular: Denies chest pain Respiratory/Chest Respiratory/Chest: Denies cough or dyspnea Gastrointestinal Gastrointestinal: Reports abdominal pain, nausea and other Details: Vaginal bleeding. ; Denies constipation, diarrhea or melena Genitourinary Genitourinary ED: Denies dysuria or hematuria Integumentary Denies abscess Neurologic Neurologic: Denies headache(s) Psychiatric Psychiatric: Denies anxiety or depression Endocrine Endocrinology: Denies heat intolerance Hematologic/Lymphatic Hematologic/Lymphatic: Denies easy bleeding or easy bruising Allergic/Immunologic Allergic/Immunologic ED: Denies mouth swelling or tongue swelling EXAM Physical Exam Narrative Exam Narrative: 20-year-old female vital signs stable afebrile. Does not look septic toxic. No distress. Sitting upright in bed. No one else present in room. H EENT exam unremarkable. Lungs clear to auscultation. Heart regular rhythm rate about 95 no murmur. Abdomen soft nondistended normal bowel sounds no peritoneal signs. Mild suprapubic tenderness. Moving all 4 extremities. Calves are nontender without edema. Neurologically she is awake and alert. Const Vital Signs: 07/13/23 18:16 07/13/23 22:04 Temperature 98.2 F Temperature Source Temporal Pulse Rate 99 Respiratory Rate 16 Blood Pressure 158/105 H 141/71 H Blood Pressure Mean 122 94 Pulse Ox 97 Oxygen Delivery Method Room Air Positive well nourished and well developed; Negative for cachectic, contractures or unkempt General Appearance ED: well developed; Negative for unkempt, cachectic, contractures or pallor Nutritional Appearance: Negative for cachectic HEENT Reports moist mucous membranes Negative for trauma or tenderness Eyes PERRL and EOMs intact bilaterally General Eye ED: Negative for pale conjunctiva, scleral icterus or other Neck no lymphadenopathy, supple and no JVD General: Negative for other Thyroid: Negative for tender Lymph Lymphatic: Negative for other Chest Wall inspection of chest normal and palpation of chest normal Resp normal respiratory effort and clear to auscultation bilaterally Effort and Inspection: Negative for pain with movement Auscultation: Negative for rales, rhonchi or wheezes Cardio regular rate, regular rhythm, S1 normal heart sound, no murmurs and no JVD Rate: Negative for bradycardia or tachycardic Rhythm: Negative for abnormal rhythm GI normal to inspection, nondistended, normoactive bowel sounds, soft to palpation, non-distended and no masses; Negative for non-tender GI Narrative: Mild suprapubic tenderness only. No peritoneal signs. Auscultation: normoactive bowel sounds Palpation: tender; Negative for guarding, rigid, hepatomegaly, splenomegaly, mass or other Back/Spine no CVA tenderness General Back: Negative for CVA tenderness Cervical Spine: Negative for cervical spine tenderness Thoracic Spine / Upper Back: Negative for thoracic spinal tenderness Lumbar Spine / Lower Back: Negative for lumbar spinal tenderness Sacrum: Negative for other Extremity normal to inspection and full ROM General Extremety ED: Negative for edema or tenderness General Extremity: Negative for edema Neuro oriented x3 and CN's II-XII intact bilaterally Sensorium / Orientation: alert, oriented to person, oriented to place and oriented to time; Negative for confused, lethargic or stuporous Motor Exam: strength 5/5 throughout Psych mental status grossly normal Appearance: Negative for unkempt Attitude: No agitated Speech: No other Mood & Affect: Negative for depressed, anxious or tearful Skin no rashes or lesions noted and no wounds General Skin Exam: Negative for jaundice or pallor Rashes: No rashes noted Trauma: Negative for other MDM MDM MDM Narrative Medical decision making narrative: Okay [id number] female was most likely a today at home. She states she passed a formed fetus. She has had no care. Her blood type so positive. Ultrasound, pelvic and labs. Patient be treated with IV fluids, morphine and Zofran. Did a pelvic exam female nurse present in the room. Review of multiple clots. About 1520 minutes later went back in and there is only very small amount of old blood no further clots. Patient is feeling improved. I have already spoken to [employer] on-call Dr. Amanda Santana, She and I are both comfortable with patient being discharged home as is the patient. Her ultrasound showed a completed . The [employer] office will follow-up tomorrow morning. Patient will drink plenty of fluids. Pelvic rest. Tylenol and Motrin for pain. Patient due to elevated blood pressure tonight. She has had elevated blood pressures with her other pregnancies. History & Record Review Discussion w/independent historian: Patient Additional record(s) reviewed:: Prior inpatient record, Prior outpatient record, Prior ED visit and Prior labs Lab Data Attestation: I reviewed the patient's lab results. Lab results narrative: CBC shows a white count 9.1. H&H 12.3 and 35.4. Platelets 211. Electrolytes unremarkable gap of 8. BUN and creatinine of 4 and 0.4. Glucose 96. Quantitative hCG was 6,798. Pelvic ultrasound showed a completed . No retained products. Labs: Laboratory Results - last 24 hr 07/13/23 18:30 WBC 9.1 RBC 3.81 L Hgb 12.3 Hct 35.4 L MCV 92.9 MCH 32.3 H MCHC 34.7 RDW Std Deviation 42.2 RDW Coeff of Amaris 12.4 Plt Count 211 MPV 11.9 Immature Gran % (Auto) 0.400 Neut % (Auto) 71.5 H Lymph % (Auto) 20.8 [place] % (Auto) 6.2 Eos % (Auto) 1.0 Baso % (Auto) 0.1 Absolute Neuts (auto) 6.5 Absolute Lymphs (auto) 1.90 Nucleated RBC % 0 Sodium 138 Potassium 3.5 Chloride 109 H Carbon Dioxide 21.0 Anion Gap 8 BUN 4 L Creatinine 0.49 L Est GFR (MDRD) Af Amer 193 Est GFR (MDRD) Non-Af 160 BUN/Creatinine Ratio 8.2 L Glucose 96 Calcium 8.4 L HCG, Quant 6798 H Radiography Diagnostic Testing: Clinical Impression(s) from Imaging Studies Obstetrics Ultrasound 07/13/23 19:28 IMPRESSION: No evidence for intrauterine gestation or definitive evidence for ectopic Findings which may be consistent with completed spontaneous . Clinical correlation is recommended and follow-up studies if clinically warranted. Electronically Signed: Balwinder Lance MD at 20:49 EDT Reading Location ID and State: [facility] / [place] Tel , Service support , Discharge Plan Triage Chief Complaint: Vag Bld, Preg ED Provider: Js Castellanos Dx/Rx/DC Orders Clinical Impression: Elevated blood pressure reading, , Vaginal bleeding Instructions: Miscarriage Dc Prescriptions: No Action famotidine [Pepcid] 40 mg tablet 40 mg PO DAILY Qty: 30 0RF ondansetron 4 mg tablet,disintegrating 4 mg PO Q8H PRN PRN (Reason: Nausea) Qty: 10 0RF Primary Care Provider: Care Physician,No Primary Referrals: Care Physician,No Primary [Primary Care Provider] - Billie Santana, [Med Staff - Active Staff] - 1 Day (Their doctor's office should call you tomorrow morning if you do not hear from them by 10:30 in the morning call their office.) Activity Restrictions/Additional Instructions: Plenty of fluids and rest. No heavy lifting. No intercourse. Tylenol and Motrin for pelvic cramping. Follow-up with the [employer] office tomorrow. Return if heavy bleeding and large clots, severe pain or fever. You will still have some bleeding. You may have some cramping. They also do need to recheck to ensure your blood pressure is improving. Disposition Disposition: Home, Self Care
[2023-07-13 19:58] LABS: Absolute Neutrophil Count 6.5 X10^3/uL (2.0-7.7); Basophil# 0.01 X10^3/uL; Basophil% 0.1 % (0-1); Eosinophil# 0.09 X10^3/uL; Hematocrit 35.4 % (37-47); Hemoglobin 12.3 g/dL (12.0-15.0); Lymphocyte % 20.8 % (19-41); Mean Corp Hgb Conc 34.7 g/dL (32-36); Mean Corpuscular Hgb 32.3 pg (27.0-32.0); Mean Corpuscular Volume 92.9 fL (81-99); Mean Platelet Vol. 11.9 fl (6.2-12.0); Monocyte# 0.57 X10^3/uL; Monocyte% 6.2 % (0-10); NRBC Flagged by Analyzer 0 % (0-5); Neutrophil # 6.52 X10^3/uL (2.7-7.7); Neutrophil % 71.5 % (47-70); Platelet Count 211 K/mm3 (150-450); RBC Distribution Width CV 12.4 % (11.6-14.6); RBC Distribution Width SD 42.2 fl (35.1-43.9); Red Blood Count 3.81 M/mm3 (4.2-5.4); White Blood Count 9.1 K/mm3 (4.4-11.0)
[2023-07-13 20:10] LABS: Anion Gap 8 (5-15); BUN 4 mg/dL (7-18); BUN/Creat Ratio 8.2 RATIO (10-20); Calcium,Total 8.4 mg/dL (8.5-10.1); Chloride 109 mmol/L (98-107); Creatinine, Serum 0.49 mg/dL (0.55-1.02); EST Glomerular Filtration Rate 160 mL/min (>60); Est Glom Filt Rate - Afr Amer 193 mL/min (>60); Glucose 96 mg/dL (74-106); Potassium 3.5 mmol/L (3.5-5.1); Sodium Level 138 mmol/L (136-145)
[2023-07-13] MEDS: morphine 8 MG/ML Syringe 6 MG IV (20:13)
[2023-07-13] MEDS: Ondansetron 4 MG/2 ML Vial IV (20:13)
[2023-07-13] MEDS: 0.9% Normal Saline (1000mL) 1,000 ML 1000 ML IV (20:13)
[2023-07-13 20:32] LABS: hCG Titer Quant., Serum 6798 mIU/mL (1-3)
[2023-07-13 22:04] VITALS: BP 141/71
[2023-07-13 22:39] VITALS: PULSE 76; RESP 15; O2SAT 98
== END 2023-07-13 22:41 | disposition home or self-care (01) ==
PROVIDERS: Emergency Provider Emergency Medicine; Visit Provider Emergency Medicine
DX: O03.9 Complete or unspecified spontaneous abortion without complication (principal); N93.9 Abnormal uterine and vaginal bleeding, unspecified; R03.0 Elevated blood-pressure reading, without diagnosis of hypertension; F17.210 Nicotine dependence, cigarettes, uncomplicated
CPT/HCPCS: 76817; 80048; 84702; 85025; 96361; 96374; 96375; 99283; J7030; A4216; J2405

== ENCOUNTER 2023-07-18 18:44 | Observation (INO) | payer MEDICAID, SELFPAY ==
[2023-07-18 18:45] VITALS: BP 164/83; PULSE 96; RESP 18; TEMP 37.1; O2SAT 98; BMI 49.9
--- NOTE | 2023-07-18 18:56 | US_ITS ---
EXAM: US , TRANSVAGINAL CLINICAL INDICATION: vaginal bleeding HEAVY WITH LARGE CLOTS. -- TOOK PILLS ON 07/11/23 AND 07/12/23 AND PASSED FETUS. PATIENT THINKS SHE WAS AROUND 14 WEEKS. -- PREVIOUS SCAN ON 07/13/23 -- HCG 6798 ON 07/13/23 NO HCG AVAILABLE TODAY TECHNIQUE: Real-time transvaginal obstetrical ultrasound of the maternal pelvis and a first trimester with image documentation. Transvaginal imaging was used for better evaluation of the fetus and adnexa. COMPARISON: 07/13/2023. FINDINGS: Uterus measures 13.9 x 6.7 x 9.5 cm. Endometrium is thickened measuring approximately 3 cm. No intrauterine gestational sac. Small cystic lesion in the cervix. Left ovary: Not visualized. Right ovary: Not visualized. FREE FLUID: No free fluid. US/Transvaginal w/Preg US IMPRESSION: Persistent thickened endometrium is suspicious for retained products. Electronically Signed: Loirn Guevara MD at 21:41 EDT Reading Location ID and State: [id number] / Tel , Service support ,
--- NOTE | 2023-07-18 18:58 | EDS_ITS ---
HPI HPI - Female History of Present Illness Chief Complaint: Vag Bleeding Narrative Narrative: Patient presents with pelvic pain and vaginal bleeding. She apparently had a miscarriage since she did see the fetus in the toilet, she did not know how far along she was and took some sort of abortive lytics at home. Today she had more pain and bleeding, she also complained of fever the past 2 days. She was seen at an outside ED and was sent here for ultrasound she had a normal CT normal white count of 7 and normal lactic acid. PFSH PFSH Medical History Depression Family history of hearing loss at age younger than 7 years Gestational HTN Headache Home Medications famotidine 40 mg tablet (Pepcid) 40 mg PO DAILY #30 tabs 02/13/23 [Rx Last Taken Unknown] ondansetron 4 mg disintegrating tablet 4 mg PO Q8H PRN PRN Nausea #10 tabs 02/13/23 [Rx Last Taken Unknown] Allergy/AdvReac Type Severity Reaction Status Date / Time No Known Allergies Allergy Verified 02/13/23 12:48 Surgical History Hx of cholecystectomy Social History Smoking Status: Current every day smoker tobacco type: cigarettes ROS ROS ED ROS Narrative Past medical history: Reviewed Medications: Reviewed Social history: Noncontributory Review of systems: All systems negative except as indicated General: No fever Eyes: No visual changes ENT: No upper airway congestion, normal voice Neck: No neck pain Cardiovascular: No chest pain Respiratory: No shortness of breath or cough Gastrointestinal: Pelvic pain Genitourinary: No dysuria, vaginal bleeding Musculoskeletal: Denies myalgias no difficulty with ambulation Skin: No rash EXAM Physical Exam Narrative Exam Narrative: Physical exam General: Patient appears somewhat uncomfortable Head: Normocephalic, Atraumatic Eyes: Conjunctiva not pale ENT: Moist mucous membranes Neck: Supple, Nontender, No lymphadenopathy Cardiovascular: Regular rate, Regular rhythm Respiratory: No distress, CTA bilaterally Abdomen: Soft, some suprapubic pain no guarding or rebound Back: Nontender, Normal Inspection. Negative for: CVA tenderness Extremities: Nontender, No edema Skin: Normal color, No rash Neurological: Alert, Normal Strength, Normal Sensation Const Vital Signs: 07/18/23 18:45 Temperature 98.8 F Temperature Source Temporal Pulse Rate 96 Respiratory Rate 18 Blood Pressure 164/83 H Blood Pressure Mean 110 Pulse Ox 98 Oxygen Delivery Method Room Air [facility] Lab Data Labs: Laboratory Results - last 24 hr 07/18/23 19:26 Urine Color Red Urine Clarity Turbid Urine pH 7.0 Ur Specific [place] 1.010 Urine Protein 500 H Urine Glucose (UA) Normal Urine Ketones 5 H Urine Occult Blood 250 H Urine Nitrite Negative Urine Bilirubin Negative Urine Urobilinogen Normal Ur Leukocyte Esterase 500 H Urine RBC > 100 SEEN Urine WBC 10-25 SEEN Ur Squamous Epith Cells 0 SEEN Urine Bacteria 0 SEEN Urine Mucus 0 SEEN Radiography Diagnostic Testing: Clinical Impression(s) from Imaging Studies Obstetrics Ultrasound 07/18/23 18:56 IMPRESSION: Persistent thickened endometrium is suspicious for retained products. Electronically Signed: Lorin Guevara MD at 21:41 EDT Reading Location ID and State: [id number] / Tel , Service support , Patient is found to have likely retained products of conception and endometrial high-dose antibiotics were started. I discussed the patient with EXPEDITION SUPERVISOR who will admit. She has a UTI however the antibiotics for the endometritis would c over it. She otherwise appears well and she is stable. Discharge Plan Triage Chief Complaint: Vag Bleeding ED Provider: Higinio El Dx/Rx/DC Orders Clinical Impression: Acute endometritis, Retained products of conception, Abdominal pain Prescriptions: No Action famotidine [Pepcid] 40 mg tablet 40 mg PO DAILY Qty: 30 0RF ondansetron 4 mg tablet,disintegrating 4 mg PO Q8H PRN PRN (Reason: Nausea) Qty: 10 0RF Primary Care Provider: Care Physician,No Primary Referrals: Care Physician,No Primary [Primary Care Provider] - Disposition Disposition: [facility]
[2023-07-18 19:33] LABS: Bacteria 0 SEEN /hpf (None Seen); Mucous, Urine 0 SEEN /hpf (<or=2+); Squamous Epithelial Cells - UA 0 SEEN /hpf (5-10)
[2023-07-18] MEDS: Ondansetron 4 MG/2 ML Vial IV (19:34)
[2023-07-18] MEDS: Morphine 4 MG/ML Syringe IV (19:34)
[2023-07-18] MEDS: 0.9% Normal Saline (1000mL) 1,000 ML 999 ML IV (19:34)
[2023-07-18 19:36] LABS: Color, Urine Red (Yellow); Glucose, Dipstick Normal (Normal); Ketone-Dipstick 5 mg/dl (Negative); Leukocyte Esterase-Dipstick 500 /ul (Negative); Nitrite-Dipstick Negative (Negative); Occult Blood-Urine 250 /ul (Negative); Protein-Dipstick 500 mg/dl (Negative); Urine Bilirubin Dipstick Negative (Negative); Urine Clarity Turbid (Clear); Urine Urobilinogen Normal (Normal)
[2023-07-18 19:55] LABS: Red Blood Cells-Urine > 100 SEEN /hpf (0-5); White Blood Cells 10-25 SEEN /hpf (0-5)
[2023-07-18 20:44] VITALS: RESP 18
[2023-07-18 22:28] VITALS: BP 143/84; PULSE 86; RESP 18; O2SAT 95
[2023-07-18 22:55] VITALS: BP 130/68; PULSE 101; RESP 19; TEMP 36.6; O2SAT 97
[2023-07-18 23:04] VITALS: BMI 48.7
[2023-07-18] MEDS: Clindamycin 900 MG/50 ML BAG 75 MG IV (23:39)
[2023-07-18] MEDS: Lactated Ringers 1,000 ML 125 ML IV (23:40)
[2023-07-19] VITALS (7 sets, daily range): BP systolic 111–138; BP diastolic 43–85; PULSE 73–82; RESP 16–18; TEMP 35.9–36.5; O2SAT 78–100; BMI 48.7
--- NOTE | 2023-07-19 | POC_PTH ---
PATIENT: DONNA MCMULLEN LOC: MS3 U#:[id number] AGE/SX: 28/F ROOM: MS320 RE07/18/[address]: Dr. Loren Glass MD : 1995 BED: 1 DIS: 07/19/2023 SPEC #: [id number] RECD: 07/20/23 08:50 STATUS: TANISHA SNOWShanda #: [id number] MIGUEL ANGEL: 07/19/23 00:[address]: Loren Glass DEPT: SURGICAL PATHOLOGY RECD BY: Zack Stuart ENTERED: 07/20/23 09:44 SP TYPE: PROD CONC OTHR DR: No Primary Care Phys Tissues: Product of conception, NOS Procedures: Surgery Specimen Level IV HEADER OPERATION: Suction dilation and curettage PRE-OP DIAGNOSIS: Retained products of conception TISSUE SUBMITTED: Retained products of conception MICROSCOPIC DIAGNOSIS Endometrium, curettage: Chorionic villi, decidualized stroma and trophoblastic cells (products of conception). AM:liam 07/21/2023 MICROSCOPIC DESCRIPTION Slides are reviewed. GROSS DESCRIPTION Received in fixative is one container labeled with the patient's name and designated products of conception. The specimen consists of multiple irregular fragments of light to dark adams soft tissue that in aggregate measure 11.0 x 9.0 x 2.0 cm. parts are not grossly recognized. Sourcing Consultant sections are submitted in one cassette. / AM:liam 07/20/2023 TC:5 CPT: 73614
[2023-07-19] MEDS: Acetaminophen 500 MG Tablet 1000 MG PO (00:11)
[2023-07-19] MEDS: oxyCODONE 5 MG Tablet PO (00:11)
[2023-07-19] MEDS: Gentamicin IV 330 MG in Dextrose 5%-Water (50mL Bag) 50 ML 100 MG IVPB (00:26)
[2023-07-19 04:50] LABS: Absolute Lymphocyte Count 1.76 X10^3/uL (0.83-4.51); Basophil# 0.01 X10^3/uL; Basophil% 0.2 % (0-1); Eosinophil# 0.09 X10^3/uL; Eosinophils% 1.7 % (0-5); Hematocrit 26.3 % (37-47); Hemoglobin 8.6 g/dL (12.0-15.0); Lymphocyte # 1.76 X10^3/ul (0.83-4.51); Lymphocyte % 33.2 % (19-41); Mean Corp Hgb Conc 32.7 g/dL (32-36); Mean Corpuscular Hgb 31.9 pg (27.0-32.0); Mean Corpuscular Volume 97.4 fL (81-99); Mean Platelet Vol. 10.5 fl (6.2-12.0); Monocyte# 0.42 X10^3/uL; Monocyte% 7.9 % (0-10); NRBC Flagged by Analyzer 0 % (0-5); Neutrophil # 2.99 X10^3/uL (2.7-7.7); Neutrophil % 56.4 % (47-70); Platelet Count 125 K/mm3 (150-450); RBC Distribution Width CV 12.9 % (11.6-14.6); RBC Distribution Width SD 46.2 fl (35.1-43.9); White Blood Count 5.3 K/mm3 (4.4-11.0)
[2023-07-19 05:13] LABS: Anion Gap 5 (5-15); BUN 5 mg/dL (7-18); BUN/Creat Ratio 10.6 RATIO (10-20); Calcium,Total 7.9 mg/dL (8.5-10.1); Chloride 112 mmol/L (98-107); Creatinine, Serum 0.47 mg/dL (0.55-1.02); EST Glomerular Filtration Rate 168 mL/min (>60); Est Glom Filt Rate - Afr Amer 203 mL/min (>60); Estimated Creatinine Clearance 186.24 ml/min; Glucose 95 mg/dL (74-106); Potassium 3.2 mmol/L (3.5-5.1); Sodium Level 144 mmol/L (136-145)
--- NOTE | 2023-07-19 05:28 | HP.PCM.OB_ITS ---
HPI - General General Date of Admission: 07/18/23 HPI Narrative DONNA MCMULLEN, is a 28 F who presents with acute vaginal bleeding after taking an pill, with fevers at home to 101 but WBC count of 7 and now 5 here, temp 97-98 degress. she passed what looked like tissue at home, presented to [place] ER and was evaluated, transferred to [place] [facility] for eval and on ultrasound there was a 3 cm lining suspicious for retained products. she is scheduled with [facility] for an appointment this week. [facility] Medical History Depression Family history of hearing loss at age younger than 7 years Gestational HTN Headache Home Medications NK 07/18/23 [History Last Taken Unknown] Allergy/AdvReac Type Severity Reaction Status Date / Time No Known Allergies Allergy Verified 02/13/23 12:48 Surgical History Hx of cholecystectomy Social History Smoking Status: Former smoker History Elective abortions Hx Para 1 Spontaneous abortions Hx # Term Pregnancies Ectopic pregnancies Hx # Pregnancies Multiple births # of living children ROS Constitutional Constitutional: Reports systems reviewed and no addt'l complaints, except as documented; Denies as per HPI, change in weight, fatigue, fever(s), malaise, weakness or other Eyes Eyes: Reports systems reviewed and no addt'l complaints, except as documented; D enies as per HPI, change in vision or other ENT HEENT: Reports as per HPI and dizziness; Denies dry mouth, headache(s), loss taste/smell, nasal congestion, nasal discharge, neck pain, sore throat or other Respiratory/Chest Respiratory/Chest: Reports systems reviewed and no addt'l complaints, except as documented Gastrointestinal Gastrointestinal: Reports systems reviewed and no addt'l complaints, except as documented and nausea; Denies vomiting Musculoskeletal Musculoskeletal: Reports systems reviewed and no addt'l complaints, except as documented; Denies back pain or joint pain Neurologic Neurologic: Reports systems reviewed and no addt'l complaints, except as documented Psychiatric Psychiatric: Reports systems reviewed and no addt'l complaints, except as documented Endocrine Endocrinology: Reports systems reviewed and no addt'l complaints, except as documented Hematologic/Lymphatic Hematologic/Lymphatic: Reports systems reviewed and no addt'l complaints, except as documented Vital Signs Vital Signs Vital Signs: 07/18/23 18:45 07/18/23 20:44 07/18/23 22:28 Temperature 98.8 F Temperature Source Temporal Pulse Rate 96 86 Respiratory Rate 18 18 18 Respiratory Effort Respiratory Depth Respiratory Pattern Blood Pressure 164/83 H 143/84 H Blood Pressure Mean 110 103 Blood Pressure Source Blood Pressure Position Blood Pressure Location Pulse Ox 98 95 Oxygen Delivery Method Room Air Room Air 07/18/23 22:55 07/18/23 23:00 07/19/23 04:52 Temperature 97.9 F 97.7 F L Temperature Source Oral Oral Pulse Rate 101 H 74 Respiratory Rate 19 H 18 Respiratory Effort Normal Non-Labored Respiratory Depth Normal Respiratory Pattern Normal Blood Pressure 130/68 H 111/43 L Blood Pressure Mean 88 65 Blood Pressure Source Monitor Monitor Blood Pressure Position Semi-Fowlers Semi-Fowlers Blood Pressure Location Left Arm Right Arm Pulse Ox 97 98 Oxygen Delivery Method Room Air Room Air Room Air Weight Weight: 330 lb Body Mass Index (BMI) 48.7 Physical Exam Const alert, oriented x3 and no apparent distress HEENT normocephalic Head and Scalp: atraumatic Eyes EOMs intact bilaterally and conjunctivae normal Neck full ROM, no lymphadenopathy, supple and thyroid normal General: trachea midline Lymph Lymphatic: no lymphadenopathy noted Resp normal respiratory effort, no retractions, no use of accessory muscles and clear to auscultation bilaterally Cardio regular rhythm GI normal to inspection, nondistended, normoactive bowel sounds, soft to palpation, non-distended and no masses Inspection: Negative for abdominal distention Back/Spine no CVA tenderness Extremity normal to inspection Skin no rashes or lesions noted Neuro moves all extremities and deep tendon reflexes 2+ bilaterally Motor Exam: clonus absent Psych mental status grossly normal Labs Labs Labs: Blood Type O POSITIVE Antibody Screen NEGATIVE Hct 26.3 % (37-47) L Hgb 8.6 g/dL (12.0-15.0) L Obstetrics US Syphilis Total Ab Non-reactive Rubella IgG Antibody Reactive (Nonreactive) Hep Bs Antigen Non-Reactive (Nonreactive) Chlamydia DNA (DEWEY) Negative (Negative) Neisseria gonorrhoeae DNA (DEWEY) Negative (Negative) HIV 1&2 Antibody Non-Reactive (Nonreactive) Glucose 1 Hr 50 gm 134 mg/dL (70-140) Assessment & Plan (1) Retained products of conception: (2) Acute endometritis: (3) Abdominal pain: (4) Anemia associated with acute blood loss: PLAN: Plan will admit for IV antibiotics and then plan suction dilation and currettage, After discussing the patient's diagnosis and treatment plan options, patient wis hes to proceed with surgical management. I have discussed with the patient the risks, benefits, and alternatives of the procedure which include but are not limited to risks of anesthesia, bleeding, infection, possible damage to bowel, bladder, or surrounding vasculature which could lead to additional surgery to evaluate any complications. Patient agrees to procedure and wishes to proceed. ACOG/uptodate references given for additional information regarding procedure. type and cross 2 units
[2023-07-19 05:53] LABS: International Normalized Ratio 1.3; Prothrombin Time (Protime)PT. 16.1 SECONDS (11.7-14.9)
[2023-07-19 05:54] LABS: Partial Thromboplast Time 39.8 Seconds (24.1-36.2)
[2023-07-19 05:55] LABS: Fibrinogen 415 mg/dl (203-444)
--- NOTE | 2023-07-19 06:05 | OP.PCM_ITS ---
Problems Associated Problem List Diagnoses (1) Acute endometritis: (2) Retained products of conception: (3) Anemia associated with acute blood loss: Report of Operation Date of Procedure: 07/19/23 Pre-Operative Diagnosis: see problem list Post-Operative Diagnosis: same Surgery/Procedure Performed:: Suction dilation and curettage Description of Surgical Findings:: no FHT present, Nonviable 8-9 weeks measuring 13 cm Surgeon: Loren Glass retail support manager: None Type of Anesthesia: Local MAC Special Medications: none Specimen's removed: POC Drains: none Estimated Blood Loss (mL): 50 Fluids Replaced: crystalloid Description of Procedure: Patient was taken to the operating room and placed under MAC local anesthesia. She was prepped and draped in the normal sterile fashion the dorsal lithotomy position. Bladder was drained of clear urine and anterior lip of the cervix was grasped and the uterus sounded to 13cm. Cervix was already spontaneously dilated to allow passage of a 14mm suction curette. Progressive passes were made removing the retained products of conception without complication. Sharp curettage confirmed complete removal of the retained products. cultures were taken of the lining of the uterus. All instruments were removed from the vagina and excellent hemostasis was noted and the patient was taken to recovery in stable condition. Grafts/Implants Used: none Complications none Admit VTE Documentation VTE Present on Admission: No VTE Mechan Device Prophylaxis: SCD's Procedures Urinary/Genital [id number]: 08370 Trmt of incomplete Ab, any TM
[2023-07-19] MEDS: Clindamycin 900 MG/50 ML BAG 75 MG IV (06:11)
[2023-07-19] MEDS: Lidocaine 1% (30 ml sdv) 30 ML Vial (06:28)
[2023-07-19] MEDS: miSOPROStol 200 MCG Tablet (06:35)
--- NOTE | 2023-07-19 06:36 | DCINST_ITS ---
Discharge Instructions Diet Discharge Diet: No restrictions Activity Discharge Activity: Return to Normal Activity, May Shower and May Take a Tub Bath (after 1 week) May resume sexual activity in: 1-2 weeks Weight Bearing Status: Weight bearing as tolerated Lifting Restrictions: none Dressing / Incision Call your doctor if you observe: Fever of 101 or Higher, Using more than 1 pad per hour, Shortness of breath and Uncontrolled pain Follow Up Care Please Follow Up With: Loren Glass MD When: Call [phone] to schedule appointment. Test Results: Test results from this visit will be discussed in further detail at your follow- up appointment, if applicable. Discharge Plan Admission Admit Date/Time: 07/18/23 21:58 Attending Provider: Loren Glass Primary Care Provider: Care Physician,Maria Guadalupe Primary Discharge Orders/Prescriptions Prescriptions: New ferrous sulfate [Iron (ferrous sulfate)] 325 mg (65 mg iron) tablet 325 mg PO BID Qty: 60 0RF Referrals / Follow Up: Care Physician,No Primary [Primary Care Provider] - Disposition Disposition (needs filled in before D/C Order can be placed): Home, Self Care
[2023-07-19 07:50] LABS: Absolute Lymphocyte Count 1.86 X10^3/uL (0.83-4.51); Absolute Neutrophil Count 3.2 X10^3/uL (2.0-7.7); Basophil# 0.01 X10^3/uL; Basophil% 0.2 % (0-1); Eosinophil# 0.14 X10^3/uL; Eosinophils% 2.5 % (0-5); Hematocrit 27.6 % (37-47); Hemoglobin 9.1 g/dL (12.0-15.0); Lymphocyte # 1.86 X10^3/ul (0.83-4.51); Lymphocyte % 32.7 % (19-41); Mean Corpuscular Volume 97.2 fL (81-99); Monocyte# 0.49 X10^3/uL; Monocyte% 8.6 % (0-10); NRBC Flagged by Analyzer 0 % (0-5); Neutrophil # 3.15 X10^3/uL (2.7-7.7); Neutrophil % 55.5 % (47-70); Platelet Count 145 K/mm3 (150-450); RBC Distribution Width CV 13.1 % (11.6-14.6); RBC Distribution Width SD 46.6 fl (35.1-43.9); Red Blood Count 2.84 M/mm3 (4.2-5.4); White Blood Count 5.7 K/mm3 (4.4-11.0)
[2023-07-19] MEDS: Potassium Chloride Oral Tablet 20 MEQ 40 MEQ PO (09:19)
[2023-07-19] MEDS: miSOPROStol 200 MCG Tablet 400 MCG PO (09:20)
[2023-07-19] MEDS: Oxycodone/Apap 5/325 Tablet PO (09:27)
== END 2023-07-19 09:41 | disposition home or self-care (01) ==
LOC: ED 21:56 → MS3 22:55
PROVIDERS: Admitting Provider Obstetrics & Gynecology; Emergency Provider Emergency Medicine; Visit Provider Obstetrics & Gynecology
PROC: (CPT 59812; principal; 2023-07-19 05:30)
DX: O03.5 Genital tract and pelvic infection following complete or unspecified spontaneous abortion (principal); F17.210 Nicotine dependence, cigarettes, uncomplicated; D62 Acute posthemorrhagic anemia; N39.0 Urinary tract infection, site not specified; Z3A.08 8 weeks gestation of pregnancy; O02.1 Missed abortion
CPT/HCPCS: 59812; 01965; 36415; 76817; 80048; 81001; 85025; 85384; 85610; 85730; 86850; 86900; 86901; 86920; 86922; 87070; 87075; 87205; 88305; 96361; 96365; 96367; 96368; 96375; 99221; 99285; J7030; J7120; A4216; G0378; J0290; J2405; J3490